=== PATIENT | female | born 1970 | race Caucasian/White ===

== ENCOUNTER 2025-03-15 14:50 | Outpatient (REF) | payer MEDICAID, SELFPAY ==
--- OUTSIDE RECORDS SUMMARY | 2025-03-15 14:56 | XMS_ITS | Encounter Summary ---
Author Organization [facility] Address [address] [place] [address] Care Team Providers Care Stock Patch Sawyer Name Role Phone Charissa Rojas MD Primary Care Provider Reason for Visit * Reason Onset Date Comments Nurse Triage 10/19/2023 Encounter Details Date Type Department Care Team ([facility] st Contact Info) Description 10/19/2023 Telephone [facility] [address] [place] [address] Charissa Rojas MD [address] [place], [place] [id number] Nurse Triage Social History Tobacco Use Types Packs/Day Years Used Date Smoking Tobacco: Never Smokeless Tobacco: Never Housing Stability Answer Date Recorded What is your housing situation today? I have philippe mcguire 09/19/[address] you li ve. Do you have problems with any of the following? None of the above 09/19/2023 Food Insecurity Answer Date Recorded Within the past 12 months, y ou worried that your food would run out before you got money to buy more: Never True 09/19/2023 Within the past 12 months,th e food you bought just didn't last and you didn't have enough money to get more: Never True 04/2023 Transportation Answer Date Recorded In the past 12 months, has l ack of transportation kept you from medical appts, meetings, work or from getting things needed for daily living? No 09/19/2023 Utilities Answer Date Recorded In the past 12 months, has t he electric, gas, oil or water company threatened to shut off services in your home? No 09/19/2023 Comments Unknown Sex and Gender Information Value Date Recorded Sex Assigned at Female 09/13/2022 10:14 AM EDT Legal Sex Female 10:14 AM EDT Gender Identity Female 09/13/2022 10:14 AM EDT Sexual Orientation Straight 09/13/2022 10 :14 AM EDT documented as of this encounter Miscellaneous Notes * Telephone Encounter - Corinne Moono - 10/19/2023 3:34 PM EST Symptom: Knee Pain - Not From Injury Outcome: Schedule an urgent appointment (within 1 hour) or talk to a nurse or provider soon Reason: Severe pain now The caller accepted this outcome Chilean speaker documented in this encounter Plan of Treatment Upcoming Encounters Date Type Department Care Team (Late st Contact Info) Description 06/21/2025 2:30 PM EDT Office Visit [facility] [address] [place] [address] Charissa Rojas MD [address] [place] [address] documented as of this encounter Visit Diagnoses Not on filedocumented in this encounter Care Teams Stock Patch Sawyer Relationship Specialty Start Date End Date Charissa Rojas MD [address] [place] [address] PCP - General Internal Medicine 03/09/12 documented as of this encounter
--- OUTSIDE RECORDS SUMMARY | 2025-03-15 14:56 | XMS_ITS | Continuity of Care Document ---
Author Organization [facility] Address [address] [place] [address] Phone Care Team Providers Care Net Developer Programmer Name Role Phone Unavailable Unavailable Unavailable Medications [...] Provider Providers Copied on Encounter [facility], [address], [place], [place], [id number], [place] tel:[phone] [employer] [place] No Information 2 No Information [facility], [address], [place], [place], [id number], [place] tel:[phone] Converted Locations No Information 2 No Information [facility], [address], [place], [place], [id number], [place] tel:[phone] Converted Locations No Information 1 Z-Converted Provider. . [facility], [address], [place], [place], [id number], [place] tel:[phone] [facility] Generalized anxiety disorderUnspe cified essential hypertension 1 No Information [place] Cary [facility], [address] [facility] [address], [place], [place], [id number], tel:[phone] Converted Locations No Information 1 No Information [place] Cary [facility], [address] [facility] [address], [place], [place], [id number], tel:[phone] Converted Locations No Information 1 Z-Converted Provider. . [facility], [address] [facility] [address], [place], [place], [id number], [place] tel:[phone] [facility] Other general medical examination for administrativ [...] hypertension Payers Payer name Insurance type Covered alliance party ID Authoriza tion(s) No Information Social History Type Description Quantity Date Captured Comments Sex Female Smoking Status No Information Chief Complaint And Reason For Visit No Information Reason For Referral Reason For Referral No Information Plan Of Treatment Date Type Action Status Goal Unhealthy drug use screening . Due on due Goal HPV. Due on due Goal Document SOGI Information. [...]
--- OUTSIDE RECORDS SUMMARY | 2025-03-15 14:56 | XMS_ITS | Clinical Summary ---
Author Organization [employer] Address [address] [place] [address] Care Team Providers Care Cardiac Specialist Name Role Phone Charissa Rojas MD Primary Care Provider Allergies No known active allergies Medications cyclobenzaprine (Flexeril) 5 MG tablet TOME SEMAJ TABLETA TODOS LOS ARAUJO AL ACOSTARSE 30 tablet 3 3 Active atorvastatin (Lipitor) 40 MG tablet Take 1 tablet by mouth. 1 Active chlorthalidone (Hygroton) 25 MG tablet TOME MEDIA TABLETA DIARIAMENTE POR V A ORAL 3 Active Diclofenac Sodium 1 % gel APLIQUE AL MARINA AFECTADA TOPICAMENTE 2 VECES AL MARIELOS. 2 Active cholecalciferol (KP Vitamin D) 25 MCG (1000 UT) capsule Take 1 capsule by mouth. 6 Active loratadine (Claritin) 10 MG tablet Take 1 tablet by mouth at bed time. 9 Active amLODIPine (Norvasc) 10 MG tabletIndication s:Benign hypertension TOME SEMAJ TABLETA TODOS LOS ARAUJO 30 tablet 11 4 Active Diclofenac Sodium 1 % gelIndications:A cute pain of right knee TO APPLY TO THE AFFECTED AREA 3 TIMES A DAY 100 g 4 Active carbamide peroxide (Debrox) 6.5 % otic solutionIndicati ons:Excessive cerumen in right ear canal Administer 5-10 drops into affected ear(s) 2 times daily for 4 days. 30 mL 5 03/19/20 25 Active Active Problems Problem Noted Date Diagnosed Date Anemia of chronic disease 07/06/2021 Hypertensive heart and renal disease with (congestive) heart failure 07/06/2021 Stage 1 chronic kidney disease 07/06/2021 Depressive disorder 05/09/2010 Benign hypertension 05/09/1993 Encounters Date Type Department Care Team Description 03/15/2025 2:00 PM EDT Office Visit [facility] & PEDS [address] [place] [address] Charissa Rojas MD Benign hypertension (Primary Dx); Depressive disorder; Annual physical exam; Screening for colon cancer; Encounter for screening mammogram for malignant neoplasm of breast; Excessive cerumen in right ear canal; Encounter for immunization 03/15/2025 Travel 03/08/2025 Patient Outreach [facility] [address] [place] [address] Charissa Rojas MD Pre-visit Planning (Pre visit planning unable to LVM ) 01/25/2025 Population Health Risk Score [facility] () Department [address] [place] [address] Provider, Population Health Generic from Last 3 Months Immunizations Name Administration Dates Next Due Influenza injectable quadriv alent IIV4 with preservative 08/10/2016,09/11/2015 Influenza, IIV3, injectable 09/07/2018 Influenza, Split (incl. purified surface antigen ) 08/30/2013,09/18/2012 Pneumococcal Conjugate PCV 20 03/15/2025 Tdap 03/15/2025,02/15/2014 Family History Medical History Relation Name Comments Breast cancer Mother Relation Name Status Comments Mother Social History Tobacco Use Types Packs/Day Years Used Date Smoking Tobacco: Never Smokeless Tobacco: Never Tobacco Cessation:Counseling Given: Not Answered Depression Answer Date Recorded Patient Health Questionnaire-9 Score 4 03/15/2025 Patient Health Questionnaire-9 Score 4 03/15/2025 Last PHQ-9: Questionnaire Data Not on file 0 03/15/2025 Housing Stability Answer Date Recorded What is [...] off services in your home? No 09/19/2023 Depression Answer Date Recorded Patient Health Questionnaire-2 Score 3 03/15/2025 Comments Unknown Sex and Gender Information Value Date Recorded Sex Assigned at Female 09/13/2022 10:14 AM EDT Legal Sex Female 10:14 AM EDT Gender Identity Female 09/13/2022 10:14 AM EDT Sexual Orientation Straight 09/13/2022 10 :14 AM EDT Last Filed Vital Signs Vital Sign Reading Time Taken Comments Blood Pressure 161/103 03/15/2025 2:11 PM EDT Pulse 91 03/15/2025 2:11 PM EDT Temperature 36.6 ??C (97.9 ??F) 03/15/2025 2:11 PM ED T Respiratory Rate 20 03/15/2025 2:11 PM EDT Oxygen Saturation 92% 03/15/2025 2:11 PM EDT Inhaled Oxygen Concentration - - Weight 65.3 kg (144 lb) 03/15/2025 2:11 PM EDT Height 157.5 cm (5' 2 ) 03/15/2025 2:11 PM EDT Body Mass Index 26.34 03/15/2025 2:11 PM EDT Plan of Treatment Upcoming Encounters Date Type Department Care Team (Late st Contact Info) Description 06/21/2025 2:30 PM EDT Office Visit [facility] PEDS [address] [place] [address] Charissa Rojas MD [address] [place] [address] Health Maintenance Due Date Last Done Comments CT Colonography 1970 Colonoscopy 1970 Colorectal Cancer Screening 1970 Depression Screening 1970 FIT DNA/Cologuard 1970 FIT 1970 FOBT 1970 HIV Screening 1970 Sigmoidoscopy 1970 Alcohol/Substance Use Screening 1982 Hepatitis C Screening 1988 Hepatitis B Vaccines (1 of 3 - 19+ 3-dose series) 1989 Pap Smear 1991 Mammogram 2010 Zoster Vaccines (1 of 2) 2020 Cervical Cancer Screening 05/31/2022 HPV/Cotest 05/31/2022 05/31/2017 SDOH Screening 03/10/2024 03/10/2023 COVID-19 Vaccine ( season) 2024 01/09/2022, 04/08/2021, 03/18/2021 Influenza Vaccine (#1) 2024 8, 08/10/2016, 09/11/2015, Additional history exists Lipid Panel 02/24/2026 02/24/2021 Tobacco Screening 03/15/2026 03/15/2025 DTaP/Tdap/Td Vaccines (3 - Td or Tdap) 03/15/2035 03/15/2025, 02/15/2014 RSV Patients and Patients Aged 60 years or older (1 - 1-dose 75+ series) 2045 Pneumococcal Vaccine: 50+ Years Completed 03/15/2025 HIB Vaccines Aged Out No longer eligi ble based on patient's age to complete this topic HPV Vaccines Aged Out No longer eligi ble based on patient's age to complete this topic Hepatitis A Vaccines Aged Out No long er eligible based on patient's age to complete this topic IPV Vaccines Aged Out No longer eligi ble based on patient's age to complete this topic Meningococcal Vaccine Aged Out No margarita bala eligible based on patient's age to complete this topic RSV under 20 months Aged Out No longe r eligible based on patient's age to complete this topic Rotavirus Vaccines Aged Out No longer eligible based on patient's age to complete this topic Procedures Procedure Name Priority Date/Time Associated Diagnosis Comments LIPID PANEL, STANDARD Routine 02/24/2021 10:57 AM EDT [facility] HISTORICAL HPV MRNA E6/E7 Routine 05/31/2017 2:40 PM EDT from Last 3 Months or Most Recently Relevant to Health Maintenance Results * (ABNORMAL) LIPID PANEL, STANDARD (02/24/2021 10:57 AM EDT) Chol/HDLC Ratio 6.6(H) <5.0 (calc) [facility] Cholesterol, Total 223(H) <200 mg/dL [facility] HDL Cholesterol 34(L) > OR = 50 mg/dL [facility] LDL Cholesterol 153(H) mg/dL (calc) [facility] Comment: Reference range: <100 ?? Desirable range <100 mg/dL for primary prevention; ?? <70 mg/dL for patients with CHD or diabetic patients ?? with > or = 2 CHD risk factors. ?? LDL-C is now calculated using the Sanket ?? calculation, which is a validated novel method providing ?? better accuracy than the Friedewald equation in the ?? estimation of LDL-C. ?? Dheeraj YEAGER et al. GARO. 2013;310(19): 3731-0592 ?? (http://education.Emergent Discovery.Strava/faq/GZL143) Non-HDL Cholesterol 189(H) <130 mg/dL (calc) [facility] Comment: For patients with diabetes plus 1 major ASCVD risk ?? factor, treating to a non-HDL-C goal of <100 mg/dL ?? (LDL-C of <70 mg/dL) is considered a therapeutic ?? option. Triglycerides 225(H) <150 mg/dL [facility] Comment: ?? If a non-fasting specimen was collected, consider repeat triglyceride testing on a fasting specimen if clinically indicated. ?? Shira et al. J. of Clin. Lipidol. 2015;9:129-169. ?? 02/24/2021 10:5 7 AM EDT us Charissa Rojas MD LAB BLOOD ORDERABLES Final Result [facility] [address] * HPV mRNA E6/E7 (05/31/2017 2:40 PM EDT) HPV mRNA E6/E7 Not Detected NOT DETECTED [facility] Comment: This test was performed using the APTIMA(R) HPV Assay ([employer] This assay detects E6/E7 viral messenger RNA (mRNA) from 14 high-risk HPV types (16,18,31,33,35,39,45,51, 52,56,58,59,66,68). For additional information please refer to: http://education.Good People/faq/YJN816f8 (This link is being provided for informational/ educational purposes only.) Test Performed by [facility], [address] [place] [address] Adrián Fam M.D., Ph.D., Director of Laboratories , [place] [id number] Please note: ??Effective 07/26/2016, HPV testing will be performed using [employer]'s APTIMA test which targets mRNA. Detecting mRNA instead of DNA, as in older methods, offers significant improvements in specificity. 05/31/2017 2:40 PM EDT Lauryn Pan CNM HISTORICAL/NON ORDERABLE LABS Final Result [facility] [address] from Last 3 Months or Most Recently Relevant to Health Maintenance Insurance [facility] C3 Care Teams Cardiac Specialist Relationship Specialty Start Date End Date Charissa Rojas MD [address] [place] [address] PCP - General Internal Medicine 03/09/12
--- OUTSIDE RECORDS SUMMARY | 2025-03-15 14:56 | XMS_ITS | Encounter Summary ---
Author Organization [employer] Address [address] [facility] [address] [place] [address] Care Team Providers Care Menu Planner Name Role Phone Charissa Rojas MD Primary Care Provider [phone] Encounter Details Date Type Department Care Team (Latest Contact Info) Description 03/15/2025 Travel Social History Tobacco Use Types Packs/Day Years Used Date Smoking Tobacco: Never Smokeless Tobacco: Never Depression Answer Date Recorded Patient Health Questionnaire-9 [...] AM EDT documented as of this encounter Plan of Treatment Upcoming Encounters Date Type Department Care Team (Late st Contact Info) Description 06/21/2025 2:30 PM EDT Office Visit [facility] [address] [place] [address] Charissa Rojas MD [address] [place] [address] documented as of this encounter Visit Diagnoses Not on filedocumented in this encounter Additional Health Concerns Assessment Noted Time PHQ-9 Depression Total Score: 4 03/15/20 25 2:36 PM EDT documented as of this encounter Care Teams Menu Planner Relationship Specialty Start Date End Date Charissa Rojas MD [address] [place] [address] PCP - General Internal Medicine 03/09/12 documented as of this encounter
--- OUTSIDE RECORDS SUMMARY | 2025-03-15 14:56 | XMS_ITS | Encounter Summary ---
Author Organization [facility] Address [address] [place] [address] Care Team Providers Care Grain Combine Driver Name Role Phone Charissa Rojas MD Primary Care Provider Reason for Referral * Imaging (Routine) - Pending Review Specialty Diagnoses / Procedures Referred By Froylan calhoun Referred To Contact Radiology Diagnoses Encounter for screening mammogram for malignant neoplasm of breast Procedures BI Mammogram Screening Tomosynthesis Bilateral Charissa Rojas MD [address] [place] [address] Phone: tel: fax: Referral ID Status Reason Start Date Expiration Date V isits Requested Visits Authorized [id number] Pending Review 03/15/2025 03/15/2026 1 1 Reason for Visit * Reason Comments Annual Exam Encounter Details Date Type Department Care Team ([facility] st Contact Info) Description 03/15/2025 2:00 PM EDT Office Visit [facility] [address] [place] [address] Charissa Rojas MD [address] [place] [address] Benign hypertension (Primary Dx); Depressive disorder; Annual physical exam; Screening for colon cancer; Encounter for screening mammogram for malignant neoplasm of breast; Excessive cerumen in right ear canal; Encounter for immunization Social History Tobacco Use Types Packs/Day Years [...] AM EDT documented as of this encounter Last Filed Vital Signs Vital Sign Reading [...] Mass Index 26.34 03/15/2025 2:11 PM EDT documented in this encounter Progress Notes * Charissa Rojas MD - 03/15/2025 2:00 PM EDT SUBJECTIVE Olena Pascual is a 55 y.o. female who presents for Annual Exam. HPI Fam h/o breast cancer Overall feels well Takes her BP medication irregularly Needs her mammogram and her Hha exam Patient Active Problem List Diagnosis Anemia of chronic disease Benign hypertension Depressive disorder Hypertensive heart and renal disease with (congestive) heart failure (CMS/HCC) Stage 1 chronic kidney disease No Known Allergies Current Outpatient Medications on File Prior to Visit Medication Sig Dispense Refill amLODIPine (Norvasc) 10 MG tablet TOME SEMAJ TABLETA TODOS LOS ARAUJO 30 tablet 11 atorvastatin (Lipitor) 40 MG tablet Take 1 tablet by mouth. chlorthalidone (Hygroton) 25 MG tablet TOME MEDIA TABLETA DIARIAMENTE POR V A ORAL cholecalciferol ( Vitamin D) 25 MCG (1000 UT) capsule Take 1 capsule by mouth. cyclobenzaprine (Flexeril) 5 MG tablet TOME SEMAJ TABLETA TODOS LOS ARAUJO AL ACOSTARSE 30 tablet 3 Diclofenac Sodium 1 % gel APLIQUE AL MARINA AFECTADA TOPICAMENTE 2 VECES AL MARIELOS. Diclofenac Sodium 1 % gel TO APPLY TO THE AFFECTED AREA 3 TIMES A DAY 100 g 0 loratadine (Claritin) 10 MG tablet Take 1 tablet by mouth at bed time. No current facility-administered medications on file prior to visit. Review of Systems Constitutional: Negative for activity change, appetite change, chills and diaphoresis. HENT: Negative for dental problem, drooling, ear discharge, ear pain and hearing loss. Eyes: Negative for pain, discharge and itching. Respiratory: Negative for cough, choking and chest tightness. Cardiovascular: Negative for chest pain and leg swelling. Gastrointestinal: Negative for blood in stool and diarrhea. Genitourinary: Negative for difficulty urinating, dyspareunia, dysuria, enuresis, flank pain, frequency and genital sores. Musculoskeletal: Negative for arthralgias, gait problem and joint swelling. Skin: Negative for pallor. Neurological: Negative for dizziness, seizures, speech difficulty, light- headedness and numbness. Psychiatric/Behavioral: Negative for behavioral problems, confusion and decreased concentration. OBJECTIVE Vitals: 03/15/25 1411 BP: (!) 161/103 BP Location: Left arm Patient Position: Sitting BP Cuff Size: Adult Pulse: 91 Resp: 20 Temp: 97.9 ??F (36.6 ??C) TempSrc: Oral SpO2: 92% Weight: 144 lb (65.3 kg) Height: 5' 2 (1.575 m) Physical Exam Constitutional: General: She is not in acute distress. Appearance: Normal appearance. She is not ill-appearing, toxic-appearing or diaphoretic. HENT: Head: Normocephalic. Right Ear: Tympanic membrane normal. There is no impacted cerumen. Left Ear: Tympanic membrane normal. There is no impacted cerumen. Nose: Nose normal. No congestion or rhinorrhea. Mouth/Throat: Mouth: Mucous membranes are moist. Eyes: General: No scleral icterus. Right eye: No discharge. Left eye: No discharge. Pupils: Pupils are equal, round, and reactive to light. Cardiovascular: Rate and Rhythm: Normal rate and regular rhythm. Heart sounds: No murmur heard. No friction rub. No gallop. Pulmonary: Effort: Pulmonary effort is normal. No respiratory distress. Breath sounds: No stridor. No wheezing, rhonchi or rales. Chest: Chest wall: No tenderness. Abdominal: General: There is no distension. Palpations: Abdomen is soft. There is no mass. Tenderness: There is no abdominal tenderness. There is no right CVA tenderness or left CVA tenderness. Musculoskeletal: General: Normal range of motion. Cervical back: Normal range of motion. Neurological: General: No focal deficit present. Mental Status: She is alert and oriented to person, place, and time. Psychiatric: Mood and Affect: Mood normal. Assessment/Plan Assessment/Plan Diagnoses and all orders for this visit: Benign hypertension Comments: BP is elevated Pt did not take her meds today because she woke up late Compliance to medication reinforced. Depressive disorder Comments: Stable Patient declines needing help Annual physical exam Comments: Normal exam Patient is to maintain a healthy and balanced diet Needs eye exam, gynecological exam, Cologuard, mammogram Orders: - CBC auto differential; Future - Comprehensive Metabolic Panel; Future - Hepatitis C Viral RNA, Quantitative, Real-Time PCR; Future - HIV-1/2 Antigen and Antibodies, Fourth Generation, with Reflexes; Future - Lipid Panel, Standard; Future - TSH W/Reflex to FT4; Future Screening for colon cancer - Cologuard?? colon cancer screening; Future Encounter for screening mammogram for malignant neoplasm of breast - BI Mammogram Screening Tomosynthesis Bilateral; Future Excessive cerumen in right ear canal - carbamide peroxide (Debrox) 6.5 % otic solution; Administer 5-10 drops into affected ear(s) 2 times daily for 4 days. documented in this encounter Miscellaneous Notes * Addendum Note - Carla Crawford [place] - 03/15/2025 2:00 PM EDTAddended by: CARLA CRAWFORD on: 03/15/2025 02:41 PM Modules accepted: Orders documented in this encounter Plan of Treatment Upcoming Encounters Date Type Department Care Team (Late st Contact Info) Description 06/21/2025 2:30 PM EDT Office Visit [facility] [address] [place] [address] Charissa Rojas MD [address] [place] [address] Scheduled Orders Name Type Priority Associated Diagnoses Orde r Schedule Cologuard?? colon cancer screening Lab Routine Screening for colon cancer Expected: 03/15/2025 (Approximate), Expires: 03/15/2026 BI Mammogram Screening Tomosynthesis Bilateral Imaging Routine Encounter for screening mammogram for malignant neoplasm of breast Expected: 03/15/2025, Expires: 05/15/2026 CBC auto differential Lab Routine Annual physical exam Expected: 03/15/2025 (Approximate), Expires: 03/15/2026 Comprehensive Metabolic Panel Lab Routine Annual physical exam Expected: 03/15/2025 (Approximate), Expires: 03/15/2026 Hepatitis C Viral RNA, Quantitative, Real-Time PCR Lab Routine Annual physical exam Expected: 03/15/2025 (Approximate), Expires: 03/15/2026 HIV-1/2 Antigen and Antibodies, Fourth Generation, with Reflexes Lab Routine Annual physical exam Expected: 03/15/2025 (Approximate), Expires: 03/15/2026 Lipid Panel, Standard Lab Routine Annual physical exam Expected: 03/15/2025 (Approximate), Expires: 03/15/2026 TSH W/Reflex to FT4 Lab Routine Annual physical exam Expected: 03/15/2025 (Approximate), Expires: 03/15/2026 documented as of this encounter Visit Diagnoses Diagnosis Benign hypertension- Primary Essential hypertension, benign Depressive disorder Depressive disorder, not elsewhere classified Annual physical exam Routine general medical examination at a health care facility Screening for colon cancer Special screening for malignant neoplasms, colon Encounter for screening mammogram for malignant neoplasm of breast Excessive cerumen in right ear canal Encounter for immunization documented in this encounter Additional Health Concerns Assessment Noted Time PHQ-9 Depression Total Score: 4 03/15/20 25 2:36 PM EDT documented as of this encounter Care Teams Grain Combine Driver Relationship Specialty Start Date End Date Charissa Rojas MD [address] [place] [id number] PCP - General Internal Medicine 03/09/12 documented as of this encounter
[2025-03-15 17:46] LABS: MANUAL DIFF FLAG NO
[2025-03-15 17:56] LABS: Basophils Absolute Auto 0.1 X10*3/uL (0.0-0.2); Basophils Percent Auto 0.8 % (0-2); Eosinophils Absolute Auto 0.1 X10*3/uL (0.0-0.4); Eosinophils Percent Auto 0.6 % (0-4); Hematocrit 39.5 % (37.0-47.0); Hemoglobin 12.8 g/dl (12.0-16.0); Imm Gran Abs Auto 0.03 X10*3/uL (0.00-0.03); Imm Gran Pct Auto 0.3 % (0.0-0.4); Lymphocytes Absolute Auto 2.9 X10*3/uL (1.2-4.9); Lymphocytes Percent Auto 33.3 % (20-40); Mean Corpuscular HGB Conc 32.4 g/dl (31.0-35.0); Mean Corpuscular Volume 89.6 fL (80.0-98.0); Mean Platelet Volume 9.4 fL (9.4-12.3); Monocytes Absolute Auto 0.5 X10*3/uL (0.1-1.2); Monocytes Percent Auto 5.9 % (2-11); Neutrophils Absolute Auto 5.1 x10*3/uL (2.0-8.3); Neutrophils Percent Auto 59.1 % (45-73); Platelet Count 431 X10*3/uL (160-400); Red Blood Count 4.41 X10*6/uL (4.20-5.50); Red Cell Distribution Width 13.8 % (11.0-16.0); White Blood Count 8.7 X10*3/uL (4.8-10.8)
[2025-03-15 18:18] LABS: Albumin Level 4.5 g/dL (3.5-5.0); Alkaline Phosphatase 69 U/L (39-117); Anion Gap 12 (12-20); Aspartate Amino Transferase 32 U/L (5-31); Bilirubin Total 0.3 mg/dL (0.0-1.0); Blood Urea Nitrogen 11 mg/dL (9-16); Calcium 9.5 mg/dL (8.4-10.2); Carbon Dioxide 25 mmol/L (22-29); Chloride 107 mmol/L (96-108); Cholesterol 292 mg/dL (<200); Estimated Glomerular Filt Rate > 60; Glucose Random 90 mg/dL (60-115); HDL Cholesterol 36 mg/dL (>40); LDL Cholesterol Calculated 199 mg/dL (<100); Potassium 3.7 mmol/L (3.3-5.1); Sodium 140 mmol/L (135-145); Total Protein 8.3 g/dL (6.5-8.0); Triglycerides 289 mg/dL (<150)
[2025-03-15 18:22] LABS: Alanine Aminotransferase 28 U/L (0-31)
[2025-03-15 18:55] LABS: TSH reflex Free T4 0.96 uIU/mL (0.32-4.0)
[2025-03-16 11:18] LABS: HCV Log PCR <1.18 NOT DETECTED Log IU/mL (NOT DETECTED); HepC Viral Load <15 NOT DETECTED IU/mL (NOT DETECTED)
[2025-03-18 04:54] LABS: HIV AB/AG Nonreactive (Nonreactive); HIV Num 1 0.11 S/CO (0.00-0.99)
== END 2025-03-15 14:51 | disposition home or self-care (01) ==
LOC: HO.CHCLDS 14:50
PROVIDERS: Visit Provider Internal Medicine
DX: Z00.00 Encounter for general adult medical examination without abnormal findings (principal)
CPT/HCPCS: 36415; 80053; 80061; 84443; 85025; 87389; 87522

== ENCOUNTER 2025-04-09 14:49 | Outpatient (REF) | payer MEDICAID, SELFPAY ==
--- OUTSIDE RECORDS SUMMARY | 2025-04-09 14:52 | XMS_ITS | Continuity of Care Document ---
Author Organization [facility] Address [address] [place] [address] Phone Care Team Providers Care Wrapper Stripper Name Role Phone Unavailable Unavailable Unavailable Medications [...] Providers Copied on Encounter [facility], [address], [place], [place], [id number], [place] tel:[phone] [employer] [facility] No Information 2 No Information [facility], [address], [place], [place], [id number], [place] tel:[phone] Converted Locations No Information 2 No Information [facility], [address], [place], [place], [id number], [place] tel:[phone] Converted Locations No Information 1 Z-Converted Provider. . [facility], [address], [place], [place], [id number], [place] tel:[phone] [facility] Generalized anxiety disorderUnspe cified essential hypertension 1 No Information [place] [facility], [address], [place], [place], [id number], tel:[phone] Converted Locations No Information 1 No Information [place] [facility], [address], [place], [place], [id number], tel:[phone] Converted Locations No Information 1 Z-Converted Provider. . [facility], [address], [place], [place], [id number], [place] tel:[phone] [facility] Other general medical examination for administrativ [...] hypertension Payers Payer name Insurance type Covered constitution party ID Authoriza tion(s) No Information Social [...]
== END 2025-04-09 14:50 | disposition home or self-care (01) ==
LOC: HO.CHCLNP 14:49
PROVIDERS: Visit Provider Family Medicine
DX: Z12.4 Encounter for screening for malignant neoplasm of cervix (principal)
CPT/HCPCS: 87626; 88175

== ENCOUNTER 2025-08-02 11:24 | Outpatient (REF) | payer MEDICAID, SELFPAY ==
--- OUTSIDE RECORDS SUMMARY | 2012-06-15 10:07 | XMS_ITS | Continuity of Care Document ---
Author Organization [facility] Address [address] [place] [address] Phone Care Team Providers Care Rubber Tile Floor Layer Name Role Phone Unavailable Unavailable Unavailable Medications Medication Instructions Dosage Effective Dates (start - stop) Status Comments Natural Oyster Shell Calcium 500 mg calcium (1,250 mg) Tab Take 2 tablets by mouth daily. - Active ferrous sulfate 325 mg (65 mg iron) Tab Take 1 tablet by mouth three times daily. - Active Vitamin D 50,000 unit Cap Take 1 tablet by mouth once weekly for 8 weeks. - Active buspirone 10 mg Tab Take 2 tablets by mouth daily. - Active Kristina 0.35 mg Tab Take 1 tablet by wisam th daily. - Active labetalol 200 mg Tab Take 1 tablet by mo uth daily - Active zolpidem 10 mg Tab 1 tablet at bedtime. 1 - Active Advance Directives Directive Yes / No Effective Date File Name No Information Encounters Encounter Description Practice Location Reason(s) For Visit Diagnoses Date Provider Providers Copied on Encounter [facility], [address], [place], [place], [id number], [place] tel:[phone] [employer] No Information 2 No Information [facility], [address], [place], [place], [id number], [place] tel:[phone] Converted Locations No Information 2 No Information [facility], [address], [place], [place], [id number], [place] tel:[phone] Converted Locations No Information 1 Z-Converted Provider. . [facility], [address], [place], [place], [id number], [place] tel:[phone] [facility] Generalized anxiety disorderUnspe cified essential hypertension 1 No Information [place] [facility], [address], [place], [place], [id number], tel:[phone] Converted Locations No Information 1 No Information [place] [facility], [address] [facility] [address], [place], [place], [id number], tel:[phone] Converted Locations No Information 1 Z-Converted Provider. . [facility], [address], [place], [place], [id number], [place] tel:[phone] [facility] Other general medical examination for administrativ e purposes 1 Z-Converted Provider. . Family History Family Member Type Diagnosis Age At Onset FH - FATHER (DDMS) Problem (finding) heart disease FH - MOTHER (DDMS) Problem (finding) hypercholesterole rosario FH - MOTHER (DDMS) Problem (finding) arthritis FH - FATHER (DDMS) Problem (finding) Myocardial infarc tion FH - MOTHER (DDMS) Problem (finding) hypertension Payers Payer name Insurance type Covered green party ID Authoriza tion(s) No Information Social History Type Description Quantity Date Captured Comments Sex Female Smoking Status No Information Chief Complaint And Reason For Visit No Information Reason For Referral Reason For Referral No Information Plan Of Treatment Date Type Action Status Goal HPV. Due on due Goal Unhealthy drug use screening . Due on due Goal Document SOGI Information. D ue on due Goal Lipid panel. Due on 012 due Goal Td vaccine. Due on 12 due Goal PAP. Due on due Goal APE. Due on due Goal Influenza vaccine. Due on due Goal Pap/HPV testing. Due on due Goal Tdap. Due on due History Of Present Illness Encounter Date Complaint History Of Prese nt Illness No Information Functional Status Date Functional Assessmen t No Information Instructions Date Instruction Additional Infor mation No Information Assessments Type Assessment Date No Information Patient Care Teams Name Effective Dates (start - stop) Status Members No Information
--- OUTSIDE RECORDS SUMMARY | 2025-07-29 06:15 | XMS_ITS | Encounter Summary ---
Author Organization [facility] Address [address] [place] [address] Care Team Providers Care Clinical Therapist Name Role Phone Physician, Pcp Unknown Primary Care Provider Kelsey vailable Reason for Visit * Reason Comments Chest Pain Encounter Details Date Type Department Care Team (Late st Contact Info) Description 07/29/2025 6:15 AM EDT - 07/29/2025 9:[address] [facility] [address] [place] [address] Hypokalemia (Primary Dx); Intercostal pain; Syncope and collapse Discharge Disposition: Home or Self Care Social History Tobacco Use Types Packs/Day Years Used Date Smoking Tobacco: Never Assessed Comments Unknown Sex and Gender Information Value Date Recorded Sex Assigned at Not on file Legal Sex Female 11:25 AM EST Gender Identity Not on file Sexual Orientation Not on file documented as of this encounter Last Filed Vital Signs Vital Sign Reading Time Taken Comments Blood Pressure 130/90 07/29/2025 9:56 AM EDT Pulse 80 07/29/2025 9:56 AM EDT Temperature 37.1 C (98.7 F) 07/29/2025 7:32 AM EDT Respiratory Rate 16 07/29/2025 9:56 AM EDT Oxygen Saturation 99% 07/29/2025 9:56 AM EDT Inhaled Oxygen Concentration - - Weight 68 kg (150 lb) 07/29/2025 5:31 AM EDT Height 157.5 cm (5' 2 ) 07/29/2025 5:31 AM EDT Body Mass Index 27.44 07/29/2025 5:31 AM EDT documented in this encounter Discharge Instructions * Discharge Instructions* CHLOE Miranda - 07/29/2025 9:38 AM EDT Today your potassium is low but we gave you potassium to replete it. All of your other blood work looked okay including the EKG of your heart and the chest x-ray. Take the prescribed naproxen with food for the next 2 weeks, morning and night. Let your PCP know whether or not this is helping with the pain. For any new or worsening symptoms including worsening chest pain return here to the ER for reevaluation documented in this encounter Medications at Time of Discharge amLODIPine (NORVASC) 10 mg tablet Take 1 tablet (10 mg total) by mouth 1 (one) time each day. 04/09/2025 chlorthalidone (HYGROTON) 25 mg tablet Take 1 tablet (25 mg total) by mouth daily. 03/02/2023 naproxen (NAPROSYN) 500 mg tablet Take 1 tablet (500 mg total) by mouth 2 (two) times a day with meals. 60 each 07/29/2025 08/28/2025 QUEtiapine (SEROquel) 50 mg tablet Take 1 tablet (50 mg total) by mouth at bedtime. documented as of this encounter Ordered Prescriptions Prescription Sig Dispense Quantity Refills Last Filled Start Date End Date naproxen (NAPROSYN) 500 mg tablet Take 1 tablet (500 mg total) by mouth 2 (two) times a day with meals. 60 each 07/29/2025 08/28/2025 documented in this encounter Discharge Disposition Disposition Code Departure Means Destination Comment s Home or Self Care documented in this encounter Progress Notes * Maggy Burris RN - 07/29/2025 6:10 AM EDT . ED POST FALL NURSING NOTE Time of Fall: 601 Description of fall: patient stood up out of phlebotomy chair after blood specimens were obtained. Pt fell forward into prone position onto floor when Laurie CORONA caught patient, preventingpt from hitting her head on floor. Pt was rolled onto her back and central pulses assessed and present. Pt responsive to verbal stimuli with a smile. Pt lifted onto stretcher and VS assessed and documented. boss dyer aware, code star called overhead. Patient transferred to red pod for further eval and mgmt. Was the fall Assisted: [x] YES [] NO Was the fall Witnessed: [x] YES [] NO Was the Patient a high risk based on [place] Fall assessment? [] YES [] NO What interventions were NOT being used at time of fall? Yellow Socks [x] Fall Risk Band [x] Fall Risk Flag [x] Alarm [x] Injuries?- unable to voice complaints at this time Actions taken to prevent further falls: staff continuing care made aware of pt's fall so that fall precautions can be initiated Provider notified: [x] YES [] NO Family Notified: [] YES [x] NO * Marti Stack RN - 07/29/2025 5:30 AM EDT PT ARRIVES STEADY GAIT, COMPLAINS OF CHEST PAIN X 2 DAYS, NO CALL TO DR, DENIES N/V/D, DENIES ORBM SYMPTOMS, DENIES ANY OTHER COMPLAINTS NON SMOKER * CHLOE Miranda - 07/29/2025 5:24 AM EDT Emergency Medicine Note Patient Name: Olena Pascual Initial Evaluation: 07/29/2025 : 1970 Patient's PCP: Pcp Unknown Physician Emergency Physician: CHLOE Beckwith History of Present Illness Chief Complaint: Chief Complaint Patient presents with Chest Pain HPI: 65-year-old female presents today with complaints of 2 days of chest discomfort. Patient describes it as left-sided chest pain, stabbing in nature. Denies pain worse with exertion, denies that it is pleuritic. Patient does admit to recent runny nose and a nonproductive cough. Patient states historyof similar which has resolved on its own. Patient denies any recent travel or surgery, lower extremi ty swelling or edema. Patient states that she did take an aspirin at the onset of the pain, does not usually take a daily aspirin. ROS: I have performed a ROS with the pertinent positives and negatives documented in the history ofpresent illness. Previous History History reviewed. No pertinent past medical history. History reviewed. No pertinent surgical history. No family history on file. has No Known Allergies. No current facility-administered medications on file prior to encounter. Current Outpatient Medications on File Prior to Encounter Medication Sig Dispense Refill amLODIPine (NORVASC) 10 mg tablet Take 1 tablet (10 mg total) by mouth 1 (one) time each day. chlorthalidone (HYGROTON) 25 mg tablet Take 1 tablet (25 mg total) by mouth daily. QUEtiapine (SEROquel) 50 mg tablet Take 1 tablet (50 mg total) by mouth at bedtime. Physical Exam ED Triage Vitals [07/29/25 0531] Temp Heart Rate Resp BP 37.1 ??C (98.7 ??F) 87 18 (!) 154/92 SpO2 Temp Source Heart Rate Source Patient Position 98 % Temporal Other (Comment) Sitting BP Location FiO2 (%) -- -- General: awake, calm, cooperative, No apparent distress Skin: warm, dry Eyes: PERRLA, EOMI ENT: mucosa moist Neck: soft/supple, full range of motion Respiratory: clear to auscultation Cardiovascular: regular rate and rhythm Gastrointestinal: soft nontender, normal active bowel sounds, no hepatomegaly Musculoskeletal: No peripheral edema, left anterior chest wall reproducible pain with palpation Neurological: alert with no acute lateralizing deficit Psychiatric: stable mood and affect Results Labs Reviewed COMPREHENSIVE METABOLIC PANEL - Abnormal Result Value Sodium 134 Potassium 3.0 (*) Chloride 96 CO2 28 Anion Gap 10 Glucose 97 BUN 12 Creatinine 0.57 eGFR 107 BUN/Creatinine Ratio 21.1 Calcium 9.8 AST (SGOT) 23 ALT (SGPT) 26 Alkaline Phosphatase 82 Total Protein 8.6 (*) Albumin 4.4 Total Bilirubin 0.3 CBC WITH AUTO DIFFERENTIAL - Abnormal WBC 11.6 (*) RBC 4.40 Hemoglobin 12.5 Hematocrit 37.6 MCV 85.8 MCH 28.5 MCHC 33.2 RDW 12.8 Platelets 442 (*) MPV 9.0 NRBC 0.0 NRBC Absolute 0.00 Neutrophils Relative 71.1 Lymphocytes Relative 22.9 Monocytes Relative 4.6 Eosinophils Relative 0.3 Basophils Relative 0.5 Immature Granulocytes Relative 0.6 Neutrophils Absolute 8.26 (*) Lymphocytes Absolute 2.67 Monocytes Absolute 0.54 Eosinophils Absolute 0.04 Basophils Absolute 0.06 Immature Granulocytes Absolute 0.07 (*) TROPONIN I HIGH SENSITIVITY - Normal High Sensitivity Troponin I 4 Narrative: High levels of biotin in samples may falsely decrease hsTroponin values. Use caution when interpreting hsTroponin results in patients taking biotin who exhibit renal impairment (eGFR <60) or in patients taking more than 20 mg/day of biotin. TROPONIN I HIGH SENSITIVITY - Normal High Sensitivity Troponin I 4 Narrative: High levels of biotin in samples may falsely decrease hsTroponin values. Use caution when interpreting hsTroponin results in patients taking biotin who exhibit renal impairment (eGFR <60) or in patients taking more than 20 mg/day of biotin. LIPASE - Normal Lipase 63 MAGNESIUM - Normal Magnesium 2.2 B-TYPE NATRIURETIC PEPTIDE - Normal BNP 3 ETHANOL - Normal Ethanol Level 9 CBC AND DIFFERENTIAL Narrative: The following orders were created for panel order CBC and differential. Procedure Abnormality Status --------- ------ CBC auto differential[[id number]] Abnormal Final result Please view results for these tests on the individual orders. POCT GLUCOSE, BLOOD Abnormal Labs Reviewed COMPREHENSIVE METABOLIC PANEL - Abnormal; Notable for the following components: Result Value Potassium 3.0 (*) Total Protein 8.6 (*) All other components within normal limits CBC WITH AUTO DIFFERENTIAL - Abnormal; Notable for the following components: WBC 11.6 (*) Platelets 442 (*) Neutrophils Absolute 8.26 (*) Immature Granulocytes Absolute 0.07 (*) All other components within normal limits XR Chest 2 Views Final Result FINDINGS/IMPRESSION: Lungs are clear. No pleural effusion or pneumothorax. Cardiac silhouette and bones are normal. Cholecystectomy clips.. -------- FINAL REPORT -------- Dictated By: PB ROJAS Dictated Date: 07/29/2025 08:48 ET Assigned Physician: PB ROJAS Reviewed and Electronically Signed By: PB ROJAS Signed Date: 07/29/2025 09:03 ET Workstation ID: [id number] Transcribed By: Self Edit Transcribed Date: 07/29/2025 08:48 ET I have discussed the incidental/abnormal imaging and/or lab abnormalities with the patient and haveinstructed them the need for further evaluation and workup with their primary care doctor. I have provided the patient with a paper copy of the abnormality. The laboratory results, imaging results and other diagnostic exam results were reviewed in the EMR. Medical Decision Making ACS, costochondritis, PE, Pneumonia, viral URI, vasovagal syncope, orthostatic hypotension 55-year-old female presents today with complaints of chest pain. I spoke with her in the phlebotomychair while getting blood work, patient was alert and conversant, stood up to go back to the waiting room when I asked her to follow me to go down to chest x-ray, she turned around and fell forward, I was able to catch her so her face did not hit the floor. Patient was moved into stretcher, repeat vitals obtained, blood pressure 82/61, IV line placed, fluids started, will reevaluate. Likely vasovagal after having blood work, will continue to monitor. Prior to me talking with patient in the phlebotomy chair I reviewed her EKG which showed a normal sinus rhythm rate of 77 with no acute ischemic changes. After her syncopal episode a ordered a repeatEKG which showed no acute ischemic changes or evidence of arrhythmia Patient's blood pressure immediately improved upon transfer to the room, even prior to IV fluids. Patient blood work showed a potassium of 3.0, was given KCL PO. Patient's troponins are flat x 2, ruling out NSTEMI. My concern for PE is low and patient has a Wells score of 0, no indication for CTA. Patient has a mildly elevated white blood cell count, she could be starting with a virus as she does have some associated nasal congestion and a cough, regardless this will not change booth attendant (swab not sent). chest x-ray normal. Patient was advised to follow-up further with her PCP and to take the prescribed naproxen twice daily with food for the next 2 weeks as her pain could be costochondritis/musculoskeletal related as it is reproducible. Of note patient did vaguely smell of alcohol when I was talking with her initially (etoh level was added on). She does state that she was at a [employer] 2 days ago, does not normally drink, and has not been resting well since, requesting note for work. Medications sodium chloride 0.9 % bolus 1,000 mL (0 mL intravenous Stopped 07/29/25 09) potassium chloride (KLOR-CON M20) CR tablet 40 mEq (40 mEq oral Given 07/29/25 0733) Followed by potassium chloride (KLOR-CON M20) CR tablet 20 mEq (20 mEq oral Given 07/29/25 0954) Clinical Impressions as of 07/29/25956 Hypokalemia Intercostal pain Syncope and collapse Procedures Procedures Diagnosis 1. Hypokalemia 2. Intercostal pain 3. Syncope and collapse Disposition Discharge ED Prescriptions Medication Sig Dispense Start Date End Date Auth. Provider naproxen (NAPROSYN) 500 mg tablet Take 1 tablet (500 mg total) by mouth 2 (two) times a day with meals. 60 each 07/29/2025 08/28/2025 CHLOE Miranda Physician Attestation CHLOE Miranda 07/29/25 0701 CHLOE Miranda 07/29/25 0957 Cosigned by Joel Mao MD at 07/29/2025 6:30 PM EDT documented in this encounter Plan of Treatment Not on file documented as of this encounter Procedures Procedure Name Priority Date/Time Associated Diagnosis Comments ECG ANNOTATED 07/30/2025 XR CHEST 2 VIEWS STAT 07/29/2025 8:45 AM EDT TROPONIN I HIGH SENSITIVITY Timed 07/29/2025 7:20 AM EDT ECG 12-LEAD STAT 07/29/2025 6:25 AM EDT TROPONIN I HIGH SENSITIVITY Timed 07/29/2025 6:01 AM EDT CBC WITH AUTO DIFFERENTIAL STAT 07/29/2025 6:01 AM EDT CBC AND DIFFERENTIAL STAT 07/29/2025 6:01 AM EDT B-TYPE NATRIURETIC PEPTIDE STAT 07/29/2025 6:01 AM EDT MAGNESIUM STAT 07/29/2025 6:01 AM EDT LIPASE STAT 07/29/2025 6:01 AM EDT ETHANOL Add-On 07/29/2025 6:01 AM EDT COMPREHENSIVE METABOLIC PANEL STAT 07/29/2025 6:01 AM EDT ECG 12-LEAD STAT 07/29/2025 5:32 AM EDT ECG ANNOTATED 07/29/2025 documented in this encounter Results * ECG-Annotated (07/30/2025) us Provider Onbase ECG ORDERABLES Final Result * XR Chest 2 Views (07/29/2025 8:45 AM EDT) Anatomical Region Laterality Modality Body Radiographic Yakelin ging 07/29/2025 8:48 AM EDT Impressions 07/29/2025 9:03 AM EDT FINDINGS/IMPRESSION: Lungs are clear. No pleural effusion or pneumothorax. Cardiac silhouette and bones are normal. Cholecystectomy clips.. -------- FINAL REPORT -------- Dictated By: BP ROJAS Dictated Date: 07/29/2025 08:48 ET Assigned Physician: PB ROJAS Reviewed and Electronically Signed By: PB ROJAS Signed Date: 07/29/2025 09:03 ET Workstation ID: [id number] Transcribed By: Self Edit Transcribed Date: 07/29/2025 08:48 ET Narrative 07/29/2025 9:03 AM EDT XR CHEST 2 VIEWS INDICATION: 12/28/2021 TECHNIQUE: XR CHEST 2 VIEWS COMPARISON: Chest pain. Procedure Note Pb Rojas MD - 07/29/2025 XR CHEST 2 VIEWS INDICATION: 12/28/2021 TECHNIQUE: XR CHEST 2 VIEWS COMPARISON: Chest pain. IMPRESSION: FINDINGS/IMPRESSION: Lungs are clear. No pleural effusion orpneumothorax. Cardiac silhouette and bones are normal. Cholecystectomyclips.. -------- FINAL REPORT -------- Dictated By: BP ROJAS Dictated Date: 07/29/2025 08:48 ET Assigned Physician: PB ROJAS Reviewed and Electronically Signed By: PB ROJAS Signed Date: 07/29/2025 09:03 ET Workstation ID: [id number] Transcribed By: Self Edit Transcribed Date: 07/29/2025 08:48 ET Jorge L Ngo MD IMG XR PROCEDURES Final Res ult * Troponin I high sensitivity (07/29/2025 7:20 AM EDT) [facility] High Sensitivity Troponin I 4 <=54 ng/L LAB CHEMISTRY METHOD 07/29/2025 8:[address] [facility] Blood Venous blood specimen / Unknown Venipuncture / Unknown 07/29/2025 7:20 AM EDT 07/29/2025 7:[address] [facility] - 07/29/2025 8:25 AM EDT High levels of biotin in samples may falsely decrease hsTroponin values. Use caution when interpreting hsTroponin results in patients taking biotin who exhibit renal impairment (eGFR <60) or in patients taking more than 20 mg/day of biotin. Jorge L Ngo MD LAB BLOOD ORDERABLES Final Result [facility] [address] [place] [address], * ECG 12 lead (07/29/2025 6:25 AM EDT) Pathologist [facility] Ventricular Rate ECG 71 BPM GEMUSE Atrial Rate 71 BPM GEMUSE P-R Interval 148 ms GEMUSE QRS Duration 90 ms GEMUSE Q-T Interval 432 ms GEMUSE QTc 469 ms GEMUSE P Wave Heber 64 degrees GEMUSE R Heber 50 degrees GEMUSE T Heber 42 degrees GEMUSE ECG Interpretation Normal sinus rhythm When compared with ECG of 29-JUL-2025 05:32, (unconfirmed) No significant change was found Confirmed by MARY JO CHAVARRIA ([id number]) on 07/30/2025 7:52:58 AM GEMUSE 07/29/2025 6:25 AM EDT 07/30/2025 7:52 AM EDT Jorge L Ngo MD ECG ORDERABLES Final Resul t GEMUSE * Ethanol (07/29/2025 6:01 AM EDT) Ethanol Level 9 0 - 10 mg/dL LAB CHEMISTRY METHOD 07/29/2025 7:[address] [facility] Blood Venous blood specimen / Unknown Venipuncture / Unknown 07/29/2025 6:01 AM EDT 07/29/2025 6:51 AM EDT Princess CORONA LAB BLOOD ORDERABLES Fin al Result Performing Organization Address City/[facility]/ZIP Co de Phone Number [facility] [address] [place] [address], [place] [phone] * (ABNORMAL) CBC auto differential (07/29/2025 6:01 AM EDT) WBC 11.6(H) 4.8 - 10.8 K/mcL LAB HEMETOLOGY METHOD 07/29/2025 6:[address] [facility] RBC 4.40 3.80 - 4.80 M/mcL LAB HEMETOLOGY METHOD 07/29/2025 6:[address] [facility] Hemoglobin 12.5 11.5 - 16.0 g/dL LAB HEMETOLOGY METHOD 07/29/2025 6:[address] [facility] Hematocrit 37.6 35.0 - 47.0 % LAB HEMETOLOGY [facility]29[facility]2025 6[facility] MCV 85.8 79.0 - 98.0 FL LAB HEMETOLOGY METHOD 07/29/2025 6:58 [facility] MCH 28.5 27.0 - 32.0 pcg LAB HEMETOLOGY METHOD 07/29/2025 6:58 [facility] MCHC 33.2 32.0 - 37.0 g/dL LAB HEMETOLOGY METHOD 07/29/2025 6:58 AM [facility] RDW 12.8 11.0 - 15.0 % LAB HEMETOLOGY METHOD 07/29/2025 6:58 AM [facility] Platelets 442(H) 130 - 400 K/mcL LAB HEMETOLOGY METHOD 07/29/2025 6:58 AM [facility] MPV 9.0 7.0 - 11.0 FL LAB HEMETOLOGY METHOD 07/29/2025 6:58 AM [facility] NRBC 0.0 <1.0 % LAB HEMETOLOGY METHOD 07/29/2025 6:58 AM [facility] NRBC Absolute 0.00 <0.10 K/mcL LAB HEMETOLOGY METHOD 07/29/2025 6:58 AM [facility] Neutrophils Relative 71.1 % LAB HEMETOLOGY METHOD 07/29/2025 6:58 [facility] Lymphocytes Relative 22.9 % LAB HEMETOLOGY METHOD 07/29/2025 6:58 AM [facility] Monocytes Relative 4.6 % LAB HEMETOLOGY METHOD 07/29/2025 6:58 AM [facility] Eosinophils Relative 0.3 % LAB HEMETOLOGY METHOD 07/29/2025 6:[address] [facility] Basophils Relative 0.5 % LAB HEMETOLOGY METHOD 07/29/2025 6:[address] [facility] Immature Granulocytes Relative 0.6 % LAB HEMETOLOGY METHOD 07/29/2025 6:[address] [facility] Neutrophils Absolute 8.26(H) 1.50 - 7.00 K/mcL LAB HEMETOLOGY METHOD 07/29/2025 6:[address] [facility] Lymphocytes Absolute 2.67 1.00 - 5.00 K/mcL LAB HEMETOLOGY METHOD 07/29/2025 6:[address] [facility] Monocytes Absolute 0.54 0.20 - 1.00 K/mcL LAB HEMETOLOGY METHOD 07/29/2025 6:[address] [facility] Eosinophils Absolute 0.04 0.00 - 0.50 K/mcL LAB HEMETOLOGY METHOD 07/29/2025 6:[address] [facility] Basophils Absolute 0.06 0.00 - 0.20 K/mcL LAB HEMETOLOGY METHOD 07/29/2025 6:[address] [facility] Immature Granulocytes Absolute 0.07(H) 0.00 - 0.03 K/mcL LAB HEMETOLOGY METHOD 07/29/2025 6:[address] [facility] Blood Venous blood specimen / Unknown Venipuncture / Unknown 07/29/2025 6:01 AM EDT 07/29/2025 6:51 AM EDT us Jorge L Ngo MD LAB BLOOD ORDERABLES Final Result [facility] [address] [place] [address], * B-type natriuretic peptide (07/29/2025 6:01 AM EDT) BNP 3 <=100 pcg/mL LAB CHEMISTRY METHOD 07/29/2025 7:[address] [facility] Blood Venous blood specimen / Unknown Venipuncture / Unknown 07/29/2025 6:01 AM EDT 07/29/2025 6:51 AM EDT Jorge L Ngo MD LAB BLOOD ORDERABLES Final Result Performing Organization Address [facility]/ZIP Co de Phone Number [facility] [address] [place] [address], [place] [phone] * Magnesium (07/29/2025 6:01 AM EDT) [facility] Magnesium 2.2 1.9 - 2.6 mg/dL LAB CHEMISTRY METHOD 07/29/2025 7:[address] [facility] Blood Venous blood specimen / Unknown Venipuncture / Unknown 07/29/2025 6:01 AM EDT 07/29/2025 6:51 AM EDT Jorge L Ngo MD LAB BLOOD ORDERABLES Final Result Performing Organization Address [facility]/ZIP Co de Phone Number [facility] [address] [place] [address], [place] [phone] * Lipase (07/29/2025 6:01 AM EDT) [facility] Lipase 63 13 - 75 unit/L LAB CHEMISTRY METHOD 07/29/2025 7:[address] [facility] Blood Venous blood specimen / Unknown Venipuncture / Unknown 07/29/2025 6:01 AM EDT 07/29/2025 6:51 AM EDT us Jorge L Ngo MD LAB BLOOD ORDERABLES Final Result [facility] [address] [place] [address], [place] [phone] * (ABNORMAL) Comprehensive metabolic panel (07/29/2025 6:01 AM EDT) Sodium 134 133 - 145 mmol/L LAB CHEMISTRY METHOD 07/29/2025 7:19 AM [facility] Potassium 3.0(L) 3.5 - 5.5 mmol/L LAB CHEMISTRY METHOD 07/29/2025 7:19 AM [facility] Chloride 96 96 - 110 mmol/L LAB CHEMISTRY METHOD 07/29/2025 7:19 AM [facility] CO2 28 21 - 32 mmol/L LAB CHEMISTRY METHOD 07/29/2025 7:19 AM [facility] Anion Gap 10 3 - 11 LAB CHEMISTRY METHOD 07/29/2025 7:19 AM [facility] Glucose 97 70 - 100 mg/dL LAB CHEMISTRY METHOD 07/29/2025 7:19 AM [facility] BUN 12 5 - 25 mg/dL LAB CHEMISTRY METHOD 07/29/2025 7:19 AM [facility] Creatinine 0.57 0.50 - 1.10 mg/dL LAB CHEMISTRY METHOD 07/29/2025 7:19 AM [facility] eGFR 107 >=60 mL/min/1. 73m2 LAB CHEMISTRY METHOD 07/29/2025 7:19 AM [facility] Comment:Calculation based on the Chronic Kidney Disease Epidemiology Collaboration (CKD-EPI) equation refit without adjustment for race. BUN/Creatinine Ratio 21.1 LAB CHEMISTRY METHOD 07/29/2025 7:19 AM [facility] Calcium 9.8 8.5 - 10.5 mg/dL LAB CHEMISTRY METHOD 07/29/2025 7:19 AM [facility] AST (SGOT) 23 10 - 42 unit/L LAB CHEMISTRY METHOD 07/29/2025 7:[address] [facility] ALT (SGPT) 26 10 - 60 unit/L LAB CHEMISTRY METHOD 07/29/2025 7:[address] [facility] Alkaline Phosphatase 82 42 - 121 unit/L LAB CHEMISTRY METHOD 07/29/2025 7:[address] [facility] Total Protein 8.6(H) 6.0 - 8.0 g/dL LAB CHEMISTRY METHOD 07/29/2025 7:[address] [facility] Albumin 4.4 3.2 - 5.0 g/dL LAB CHEMISTRY METHOD 07/29/2025 7:[address] [facility] Total Bilirubin 0.3 0.0 - 1.4 mg/dL LAB CHEMISTRY METHOD 07/29/2025 7:[address] [facility] Blood Venous blood specimen / Unknown Venipuncture / Unknown 07/29/2025 6:01 AM EDT 07/29/2025 6:51 AM EDT Jorge L Ngo MD LAB BLOOD ORDERABLES Final Result [facility] [address] [place] [address], * Troponin I high sensitivity (07/29/2025 6:01 AM EDT) High Sensitivity Troponin I 4 <=54 ng/L LAB CHEMISTRY METHOD 07/29/2025 7:[address] [facility] Blood Venous blood specimen / Unknown Venipuncture / Unknown 07/29/2025 6:01 AM EDT 07/29/2025 6:[address] [facility] - 07/29/2025 7:22 AM EDT High levels of biotin in samples may falsely decrease hsTroponin values. Use caution when interpreting hsTroponin results in patients taking biotin who exhibit renal impairment (eGFR <60) or in patients taking more than 20 mg/day of biotin. Jorge L Ngo MD LAB BLOOD ORDERABLES Final Result Performing Organization Address [facility]/ZIP Co de Phone Number [facility] [address] [place] [address], [place] [phone] * ECG 12 lead (07/29/2025 5:32 AM EDT) [facility] Ventricular Rate ECG 77 BPM GEMUSE Atrial Rate 77 BPM GEMUSE P-R Interval 138 ms GEMUSE QRS Duration 86 ms GEMUSE Q-T Interval 412 ms GEMUSE QTc 466 ms GEMUSE P Wave Heber 64 degrees GEMUSE R Heber 38 degrees GEMUSE T Heber 37 degrees GEMUSE ECG Interpretation Normal sinus rhythm Nonspecific ST abnormality When compared with ECG of 28-DEC-2021 18:11, No significant change was found Confirmed by MARY JO CHAVARRIA ([id number]) on 07/30/2025 7:51:58 AM GEMUSE 07/29/2025 5:32 AM EDT 07/30/2025 7:51 AM EDT Jorge L Ngo MD ECG ORDERABLES Final Resul t Performing Organization Address [facility] Co de Phone Number GEMUSE * ECG-Annotated (07/29/2025) Provider Onbase ECG ORDERABLES Final Result documented in this encounter Visit Diagnoses Diagnosis Hypokalemia- Primary Hypopotassemia Intercostal pain Syncope and collapse documented in this encounter Administered Medications Inactive Administered Medications - up to 3 most recent administrations Medication Order MAR Action Action Date Dose Rate Site potassium chloride (KLOR-CON M20) CR tablet 20 mEq 20 mEq, oral, Once, On 07/29/25 at 0927, For 1 dose, Tablet may be swallowed whole (do not crush/chew/suck on) OR broken in half and each half swallowed separately OR dissolved (whole tablet) in ~4 ounces of water (allow ~2 minutes to dissolve, stir well and administer immediately). Given 07/29/2025 9:54 AM EDT 20 mEq potassium chloride (KLOR-CON M20) CR tablet 40 mEq 40 mEq, oral, Once, On Tue07/29/25 at 0727, For 1 dose, Tablet may be swallowed whole (do not crush/chew/suck on) OR broken in half and each half swallowed separately OR dissolved (whole tablet) in ~4 ounces of water (allow ~2 minutes to dissolve, stir well and administer immediately). Given 07/29/2025 7:33 AM EDT 40 mEq sodium chloride 0.9 % bolus 1,000 mL 1,000 mL, intravenous, at 2,000 mL/hr, Administer over 30 Minutes, Once, On Tue07/29/25 at 0607, For 1 dose New Bag 07/29/2025 6:55 AM EDT 1,000 mL 2000 mL/hr documented in this encounter Historical Medications * This list may reflect changes made after this encounter. QUEtiapine (SEROquel) 50 mg tablet Take 1 tablet (50 mg total) by mouth at bedtime. chlorthalidone (HYGROTON) 25 mg tablet Take 1 tablet (25 mg total) by mouth daily. 03/02/2023 amLODIPine (NORVASC) 10 mg tablet Take 1 tablet (10 mg total) by mouth 1 (one) time each day. 04/09/2025 added in this encounter Active and Recently Administered Medications Times are shown in EDT. Scheduled Medication Order 07/27/2025 07/28/2025 07/29/2025 potassium chloride (KLOR-CON M20) CR tablet 20 mEq (COMPLETED)(Linked Group 1) 20 mEq, oral, Once, On Tue07/29/25 at 0927, For 1 dose, Tablet may be swallowed whole (do not crush/chew/suck on) OR broken in half and each half swallowed separately OR dissolved (whole tablet) in ~4 ounces of water (allow ~2 minutes to dissolve, stir well and administer immediately). 0954 (Given - Provid er: Ingrid Angela RN) potassium chloride (KLOR-CON M20) CR tablet 40 mEq (COMPLETED)(Linked Group 1) 40 mEq, oral, Once, On Tue07/29/25 at 0727, For 1 dose, Tablet may be swallowed whole (do not crush/chew/suck on) OR broken in half and each half swallowed separately OR dissolved (whole tablet) in ~4 ounces of water (allow ~2 minutes to dissolve, stir well and administer immediately). 0733 (Given - Provid er: Ingrid Angela RN) sodium chloride 0.9 % bolus 1,000 mL (COMPLETED) 1,000 mL, intravenous, at 2,000 mL/hr, Administer over 30 Minutes, Once, On Tue07/29/25 at 0607, For 1 dose 0655 (New Bag - Prov ider: Vangie Caruso RN)0922 (Stopped - Provider: Ingrid Angela RN) Linked Groups Order Group 1: potassium chloride (KLOR-CON M20) CR tablet 40 mEq (COMPLETED)Jump to med 40 mEq, oral, Once, On Tue07/29/25 at 0727, For 1 dose, Tablet may be swallowed whole (do not crush/chew/suck on) OR broken in half and each half swallowed separately OR dissolved (whole tablet) in ~4 ounces of water (allow ~2 minutes to dissolve, stir well and administer immediately). Followed by potassium chloride (KLOR-CON M20) CR tablet 20 mEq (COMPLETED)Jump to med 20 mEq, oral, Once, On Tue07/29/25 at 0927, For 1 dose, Tablet may be swallowed whole (do not crush/chew/suck on) OR broken in half and each half swallowed separately OR dissolved (whole tablet) in ~4 ounces of water (allow ~2 minutes to dissolve, stir well and administer immediately). documented in this encounter Orders EKG Orders Without Results Count Last Ordered D ate First Ordered Date ECG 12-LEAD 1 07/29/2025 IV Count Last Ordered Date First Orde red Date INSERT PERIPHERAL IV 07/29/2025 documented in this encounter Care Teams Clinical Therapist Relationship Specialty Start Date End Date Physician, Pcp Unknown PCP - General 07/29/25 documented as of this encounter
--- OUTSIDE RECORDS SUMMARY | 2025-08-01 15:30 | XMS_ITS | Encounter Summary ---
Author Organization [employer] Address [address] [facility] [address] [place] [address] Care Team Providers Care Radiation Physicist Name Role Phone Charissa Rojas MD Primary Care Provider [phone] Encounter Details Date Type Department Care Team (Late st Contact Info) Description 08/01/2025 3:30 PM EDT Office Visit [facility] [address] [place] [place], [place] [phone] Charissa Rojas MD [address] [place] [address] Benign hypertension (Primary Dx); Hypokalemia Social History Tobacco Use Types Packs/Day Years Used Date Smoking Tobacco: Never Smokeless Tobacco: Never Alcohol Use Standard Drinks/Week Comments Never 0 (1 standard drink = 0.6 oz pur e alcohol) Depression Answer Date Recorded Patient Health Questionnaire-9 Score 4 03/15/2025 Patient Health Questionnaire-9 Score 4 03/15/2025 Last PHQ-9: Questionnaire Data Not on file 0 03/15/2025 Housing Stability Answer Date Recorded What is your housing situation today? I have philippe mcguire 03/15/[address] you li ve. Do you have problems with any of the following? None of the above 03/15/2025 Food Insecurity Answer Date Recorded Within the past 12 months, y ou worried that your food would run out before you got money to buy more: Never True 03/15/2025 Within the past 12 months,th e food you bought just didn't last and you didn't have enough money to get more: Never True 12/2024 Transportation Answer Date Recorded In the past 12 months, has l ack of transportation kept you from medical appts, meetings, work or from getting things needed for daily living? No 03/15/2025 Utilities Answer Date Recorded In the past 12 months, has t he electric, gas, oil or water company threatened to shut off services in your home? No 03/15/2025 Depression Answer Date Recorded Patient Health Questionnaire-2 Score 3 03/15/2025 Internet Access Answer Date Recorded Internet Access Q1 Yes 03/15/2025 Internet Access Q2 Not on file 03/15/2025 Comments No Sex and Gender Information Value Date Recorded Sex Assigned at Female 09/13/2022 10:14 AM EDT Legal Sex Female 10:14 AM EDT Gender Identity Female 09/13/2022 10:14 AM EDT Sexual Orientation Straight 09/13/2022 10 :14 AM EDT documented as of this encounter Last Filed Vital Signs Vital Sign Reading Time Taken Comments Blood Pressure 147/89 08/01/2025 3:30 PM EDT Pulse 74 08/01/2025 3:30 PM EDT Temperature - - Respiratory Rate 20 08/01/2025 3:30 PM EDT Oxygen Saturation 99% 08/01/2025 3:30 PM EDT Inhaled Oxygen Concentration - - Weight 59 kg (130 lb) 08/01/2025 3:30 PM EDT Height 159 cm (5' 2.6 ) 08/01/2025 3:30 PM EDT Body Mass Index 23.32 08/01/2025 3:30 PM EDT documented in this encounter Progress Notes * Charissa Rojas MD - 08/01/2025 3:30 PM EDT SUBJECTIVE Olena Pascual is a 55 y.o. female who presents for No chief complaint on file.. HPI Patient with history of hypertension and chronic kidney disease presented herself with 2 days of chest discomfort. Patient described the chest pain as a left-sided chest pain, stabbing in nature. Notexacerbated by exertion. She reported recent runny nose and nonproductive cough. Has had a similar symptom in the past which resolved on its own. No history of recent travel or surgery. Labs: Troponin high-sensitivity normal. Lipase: Normal. Magnesium: Normal. BNP normal. Ethanol: Normal. Potassium: 3.0. EKG: Normal sinus rhythm, no acute ischemic changes or evidence of arrhythmia. Chest x-ray: Lungs are clear, no pleural effusion or pneumothorax, cardiac silhouette and bones arenormal. Impression: Costochondritis For the incidental finding of low potassium patient was treated with KCl p.o. Patient reports doing better during the evaluation today. The chest pain has decreased. She was started on naproxen to use outpatient but she does not like taking the naproxen and would like a new medication. Did not take her blood pressure medications today. Would like to get 2 more days to rest at home to recover. Problem List[1] Allergies[2] Medications Ordered Prior to Encounter[3] Review of Systems Constitutional: Negative for activity [...] behavioral problems, confusion and decreased concentration. OBJECTIVE There were no vitals filed for this visit. Physical Exam Constitutional: General: She is not in acute distress. Appearance: Normal appearance. She is not ill-appearing, toxic-appearing or diaphoretic. Cardiovascular: Rate and Rhythm: Normal rate. Pulmonary: Effort: Pulmonary effort is normal. Abdominal: Palpations: Abdomen is soft. Neurological: General: No focal deficit present. Mental Status: She is alert. Assessment/Plan Assessment/Plan Diagnoses and all orders for this visit: Benign hypertension Comments: Compliance to medication reinforced Follow-up in 3 months DASH diet. Orders: - CBC auto differential; Future - Comprehensive Metabolic Panel; Future - Lipid Panel, Standard; Future - TSH with Reflex to Free T4; Future Hypokalemia Comments: Repeat BMP Patient will be contacted with results. [1] Patient Active Problem List Diagnosis Anemia of chronic disease Benign hypertension Depressive disorder Hypertensive heart and renal disease with (congestive) heart failure (CMS/HCC) Stage 1 chronic kidney disease Mass of upper inner quadrant of right breast Cervical cancer screening Generalized anxiety disorder Primary insomnia [2] No Known Allergies [3] Current Outpatient Medications on File Prior to Visit Medication Sig Dispense Refill amLODIPine (Norvasc) 10 MG tablet TOME SEMAJ TABLETA TODOS LOS ARAUJO 90 tablet 1 atorvastatin (Lipitor) 40 MG tablet Take 1 tablet by mouth. Blood Pressure kit 1 Units Once per day. 1 kit 0 chlorthalidone (Hygroton) 25 MG tablet Take 1 tablet (25 mg) by mouth Once per day. 90 tablet 1 cholecalciferol ( Vitamin D) 25 MCG (1000 [...] 1 tablet by mouth at bed time. PARoxetine (Paxil) 20 MG tablet TOME 1 TABLETA POR V A ORAL TODOS LOS D EN LA MA JANAY QUEtiapine (SEROquel) 50 MG tablet TOME 1 TABLETA POR V A ORAL TODOS LOS D AL ACOSTARSE SEG N LOINDICADO No current facility-administered medications on file prior to visit. documented in this encounter Plan of Treatment Upcoming Encounters Date Type Department Care Team ([facility] st Contact Info) Description 10/02/2025 10:30 AM EST Office Visit [facility] [address] [place] [address] Charissa Rojas MD [address] [place] [address] Scheduled Orders Name Type Priority Associated Diagnoses Orde r Schedule CBC auto differential Lab Routine Benign hypertension Expected: 08/01/2025 (Approximate), Expires: 08/01/2026 Comprehensive Metabolic Panel Lab Routine Benign hypertension Expected: 08/01/2025 (Approximate), Expires: 08/01/2026 Lipid Panel, Standard Lab Routine Benign hypertension Expected: 08/01/2025 (Approximate), Expires: 08/01/2026 TSH with Reflex to Free T4 Lab Routine Benign hypertension Expected: 08/01/2025 (Approximate), Expires: 08/01/2026 documented as of this encounter Visit Diagnoses Diagnosis Benign hypertension- Primary Essential hypertension, benign Hypokalemia Hypopotassemia documented in this encounter Additional Health Concerns Assessment Noted Time PHQ-9 Depression Total Score: 4 03/15/20 25 2:36 PM EDT documented as of this encounter Care Teams Radiation Physicist Relationship Specialty Start Date End Date Charissa Rojas MD [address] [place] [id number] PCP - General Internal Medicine 03/09/12 Mikey Daniels MD Psychiatrist 04/09/25 documented as of this encounter
--- OUTSIDE RECORDS SUMMARY | 2025-08-02 12:02 | XMS_ITS | Encounter Summary ---
Author Organization [employer] Address [address] [facility] [address] [place] [address] Care Team Providers Care Putty Maker Name Role Phone Charissa Rojas MD Primary Care Provider [phone] Encounter Details Date Type Department Care Team (Latest Contact Info) Description 08/01/2025 Travel Social History Tobacco Use Types Packs/Day [...] Care Team (Late st Contact Info) Description 10/02/2025 10:30 AM EST Office Visit [facility] [address] [place] [address] Charissa Rojas MD [address] [place] [address] documented as of this encounter Visit Diagnoses Not on filedocumented in this encounter Additional Health Concerns Assessment Noted Time PHQ-9 Depression Total Score: 4 03/15/20 25 2:36 PM EDT documented as of this encounter Care Teams Putty Maker Relationship Specialty Start Date End Date Charissa Rojas MD [address] [place] [address] PCP - General Internal Medicine 03/09/12 Mikey Daniels MD Psychiatrist 04/09/25 documented as of this encounter
--- OUTSIDE RECORDS SUMMARY | 2025-08-02 12:02 | XMS_ITS | Clinical Summary ---
Author Organization [facility] Address [address] [place] [id number] Care Team Providers Care Clinical Research Director Name Role Phone Unavailable Primary Care Provider Unavailabl e Allergies No known active allergies Medications metoprolol succinate XL (TOPROL XL) 25 MG 24 hr tablet Take 25 mg by mouth 1 (one) time each day 2 Active simvastatin (ZOCOR) 20 MG tablet Take 20 mg by mouth 1 (one) time each day 2 Active Multiple Vitamin (MULTIVITAMIN ADULT PO) Take 1 capsule by mouth 1 (one) time each day Active QUEtiapine (SEROquel) 50 MG tablet TOME SEMAJ TABLETA TODOS LOS D AL ACOSTARSE SEG N LO INDICADO 2 Active amLODIPine (NORVASC) 5 MG tablet TOME SEMAJ TABLETA TODOS LOS ARAUJO 30 tablet 9 2 Active chlorthalidone 25 MG tablet TAKE 1/2 TABLET POR VIA ORAL TODOS LOS ARAUJO 45 tablet 3 3 Active Active Problems Problem Noted Date Diagnosed Date Anemia of chronic disease 07/06/2021 Chronic kidney disease stage 1 07/06/2021 Hypertensive heart and renal disease with (congestive) heart failure 07/06/2021 Depressive disorder 05/09/2010 07/27/2023 Resolved Problems Problem Noted Date Diagnosed Date Resolved Date Essential hypertension 07/06/202107/06 Family History Relation Status Comments Father Unknown Mother Unknown Social History Tobacco Use Types Packs/Day Years Used Date Smoking Tobacco: Never Smokeless Tobacco: Never Alcohol Use Standard Drinks/Week Comments No 0 (1 standard drink = 0.6 oz pur e alcohol) Comments Unknown Sex and Gender Information Value Date Recorded Sex Assigned at Not on file Legal Sex Female 5:06 PM EST Gender Identity Not on file Sexual Orientation Not on file Last Filed Vital Signs Vital Sign Reading Time Taken Comments Blood Pressure 127/64 07/28/2022 2:06 PM EDT Pulse 76 07/28/2022 2:06 PM EDT Temperature - - Respiratory Rate - - Oxygen Saturation 96% 07/28/2022 2:06 PM EDT Inhaled Oxygen Concentration - - Weight 63.4 kg (139 lb 12.8 oz) 07/28/2022 2:06 PM EDT Height 157.5 cm (5' 2 ) 11/21/2019 12:0 0 PM EST Body Mass Index 25.57 11/21/2019 12:00 PM EST Plan of Treatment Health Maintenance Due Date Last Done Comments Breast Cancer Screening 1970 Hepatitis B Vaccine (1 of 3 - 19+ 3-dose series) 1989 Pneumococcal Vaccine: 50+ Ye ars (1 of 2 - PCV) 1989 Colorectal Cancer Screening: Annual FOBT 2019 Colorectal Cancer Screening: Colonoscopy 2019 Colorectal Cancer Screening: Sigmoidoscopy 2019 Influenza Vaccine (#1) 2025 6, 09/11/2015, 08/30/2013, Additional history exists Insurance * Guarantor: Olena Pascual Account Type Relation to Patient Date of Phone Billing Address Personal/Family Self [address] [place] [address] Medicaid [place] * Guarantor: Olena Pascual Account Type Relation to Patient Date of Phone Billing Address Personal/Family Self [address] [place] [address] [place]
--- OUTSIDE RECORDS SUMMARY | 2025-08-02 12:02 | XMS_ITS | Encounter Summary ---
Author Organization [facility] Address [address] [facility] [address] [facility] [address] [place] [address] Phone Care Team Providers Care Retail Asset Protection Specialist Name Role Phone Unavailable Primary Care Provider Unavailabl e Reason for Visit * Reason Comments Med Refill Encounter Details Date Type Department Care Team (Late st Contact Info) Description 09/07/2021 Refill [facility] [address] [facility] [address] [place] [address] Jorge L Downing MD [address] [facility] [address] [place] [address] Social History Tobacco Use Types Packs/Day Years [...] on file documented as of this encounter Plan of Treatment Not on file documented as of this encounter Visit Diagnoses Not on filedocumented in this encounter
--- OUTSIDE RECORDS SUMMARY | 2025-08-02 12:02 | XMS_ITS | Clinical Summary ---
Author Organization [employer] Address [address] [facility] [address] [place] [address] Care Team Providers Care Watch Repairer Name Role Phone Charissa Rojas MD Primary Care Provider Allergies No known active allergies Medications cyclobenzaprine (Flexeril) 5 MG tablet TOME SEMAJ TABLETA TODOS LOS ARAUJO AL ACOSTARSE 30 tablet 3 3 Active atorvastatin (Lipitor) 40 MG tablet Take 1 tablet by mouth. 1 Active Diclofenac Sodium 1 % gel APLIQUE AL MARINA AFECTADA TOPICAMENTE 2 VECES AL MARIELOS. 2 Active cholecalciferol (KP Vitamin D) 25 MCG (1000 UT) capsule Take 1 capsule by mouth. 6 Active loratadine (Claritin) 10 MG tablet Take 1 tablet by mouth at bed time. 9 Active Diclofenac Sodium 1 % gelIndications:A cute pain of right knee TO APPLY TO THE AFFECTED AREA 3 TIMES A DAY 100 g 4 Active QUEtiapine (SEROquel) 50 MG tablet TOME 1 TABLETA POR V A ORAL TODOS LOS D AL ACOSTARSE SEG N LO INDICADO Active PARoxetine (Paxil) 20 MG tablet TOME 1 TABLETA POR V A ORAL TODOS LOS D EN LA MA JANAY 5 Active chlorthalidone (Hygroton) 25 MG tablet Take 1 tablet (25 mg) by mouth Once per day. 90 tablet 1 5 Active amLODIPine (Norvasc) 10 MG tabletIndication s:Benign hypertension TOME SEMAJ TABLETA TODOS LOS ARAUJO 90 tablet 1 5 Active Blood Pressure kitIndications:B enign hypertension 1 Units Once per day. 1 kit Active Active Problems Problem Noted Date Diagnosed Date Mass of upper inner quadrant of right breast Assessment & Plan (04/09/2025 11:43 AM EDT): Notes on exam. Following CRICO guidelines will order diagnostic mammo + breast US. Recommended f/up with PCP. Cervical cancer screening 04/09/2025 Assessment & Plan (04/09/2025 11:44 AM EDT): 55 y.o. here for cervical cancer screening. Will continue monitoring following ASCCP guidelines. Generalized anxiety disorder 04/09/2025 Primary insomnia 04/09/2025 Anemia of chronic disease 07/06/2021 Hypertensive heart and renal disease with (congestive) heart failure 07/06/2021 Stage 1 chronic kidney disease 07/06/2021 Depressive disorder 05/09/2010 Benign hypertension 05/09/1993 Assessment & Plan (04/09/2025 11:43 AM EDT): Patient non compliant with medications, reports was using metoprolol 50 mg (medication not in list and when med rec was done last rx'ed in 2021). Last refill of meds was in 2023. Will send amlodipine 10 mg and chlorthalidone 25 mg. Has a scheduled appt with PCP in June, will send to nursing. Target BP <130/80 mmHg Reviewed med side effects Lab Results Component Value Date K 3.7 03/15/2025 Lab Results Component Value Date CREATININE 0.76 03/15/2025 No results found for: ALBUMIN Recommend lifestyle modification: Weight loss, DASH diet, High K, Low Na, Aerobic exercise, and reduce intake of alcohol Encounters Date Type Department Care Team Description 08/01/2025 3:30 PM EDT Office Visit [facility] [address] [place] [address] Charissa Rojas MD Benign hypertension (Primary Dx); Hypokalemia 08/01/2025 Travel 07/29/2025 Telephone [facility] MEDICINE [address] [place] [address] Charissa Rojas MD ER Follow-up 05/06/2025 Telephone [facility] PEDS [address] [place] [address] Charissa Rojas MD requeting a call back 05/03/2025 Results Follow-Up [facility] [address] [place] [address] Aye Zuleta MD Pap Smear, BI US Breast Complete Right from Last 3 Months Immunizations Immunization Administration Dates Next Due Influenza injectable quadriv [...] Tobacco: Never Tobacco Cessation:Counseling Given: Not Answered Alcohol Use Standard Drinks/Week Comments Never 0 (1 standard drink = 0.6 oz pur e alcohol) Depression Answer Date Recorded Patient Health Questionnaire-9 Score 4 03/15/2025 Patient Health Questionnaire-9 Score 4 03/15/2025 Last PHQ-9: Questionnaire Data Not on file 0 03/15/2025 Housing Stability Answer Date Recorded What is your housing situation today? I have philippeayaka mcguire 03/15/[address] you [...] Pulse 74 08/01/2025 3:30 PM EDT Temperature 37.1 C (98.7 F) 04/09/2025 10:48 AM EDT Respiratory Rate 20 08/01/2025 3:30 PM EDT Oxygen Saturation 99% 08/01/2025 3:30 PM EDT Inhaled Oxygen Concentration - - Weight 59 kg (130 lb) 08/01/2025 3:30 PM EDT Height 159 cm (5' 2.6 ) 08/01/2025 3:30 PM EDT Body Mass Index 23.32 08/01/2025 3:30 PM EDT Plan of Treatment Upcoming Encounters Date Type Department Care Team (Late st Contact Info) Description 10/02/2025 10:30 AM EST Office Visit [facility] MED [facility] PEDS [address] [place] [address] Charissa Rojas MD [address] [place] [address] Health Maintenance Due Date Last Done Comments CT Colonography 1970 Colonoscopy 1970 Colorectal Cancer Screening 1970 FIT DNA/Cologuard 1970 FIT 1970 FOBT 1970 Sigmoidoscopy 1970 Disability Screening 1970 Hepatitis B Vaccines (1 of 3 - 19+ 3-dose series) 1989 Zoster Vaccines (1 of 2) 2020 COVID-19 Vaccine ( season) 2025 01/09/2022, 04/08/2021, 03/18/2021 Influenza Vaccine (#1) 2025 8, 08/10/2016, 09/11/2015, Additional history exists Alcohol/Substance Use Screening 03/15/2026 03/15/2025 Depression Screening 03/15/2026 03/15/2025, 03/15/20 SDOH Screening 03/15/2026 03/15/2025 Tobacco Screening 04/09/2026 04/09/2025 Diagnostic Breast Imaging 05/06/2026 05/06/2025 Pap Smear 04/09/2028 04/09/2025 Lipid Panel 03/15/2030 03/15/2025, 02/24/2021 Cervical Cancer Screening 04/09/2030 HPV/Cotest 04/09/2030 04/09/2025, 05/31/2017 DTaP/Tdap/Td Vaccines (3 - Td or Tdap) 03/15/2035 03/15/2025, 02/15/2014 RSV Patients and Patients Aged 60 years or older (1 - 1-dose 75+ series) 2045 HIV Screening Completed 03/15/2025 Hepatitis C Screening Completed 03/15/2025 Pneumococcal Vaccine: 50+ Years Completed 03/15/2025 HIB [...] patient's age to complete this topic Meningococcal B Vaccine Aged Out No l onger eligible based on patient's age to complete [...] Procedure Name Priority Date/Time Associated Diagnosis Comments BI US BREAST COMPLETE RIGHT Routine 05/06/2025 Mass of upper inner quadrant of right breast HPV DNA, LOW/HIGH RISK Routine 04/09/2025 11:33 AM EDT Cervical cancer screening PAP SMEAR Routine 04/09/2025 11:33 AM EDT Cervical cancer screening HEPATITIS C VIRAL RNA, QUANTITATIVE, REAL-TIME PCR Routine 03/15/2025 2:56 PM EDT Annual physical exam HIV 1/2 ANTIGEN/ANTIBODY, FOURTH GENERATION W/RFL Routine 03/15/2025 2:56 PM EDT Annual physical exam LIPID PANEL, STANDARD Routine 03/15/2025 2:56 PM EDT Annual physical exam from Last 3 Months or Most Recently Relevant to Health Maintenance Results * BI US Breast Complete Right (05/06/2025) Anatomical Region Laterality Modality Breast Right Ultrasound us Aye Zuleta MD IMG US PROCEDURES Final Resul t * HPV High Risk with Reflex to Subtypes (04/09/2025 11:33 AM EDT) HPV High Risk Negative Negative [facility] HPV Genotype 16 Negative Negative [facility] HPV Genotype 18 Negative Negative [facility] Comment:HPV testing performe d at [facility] (CLIA#[id number]), [address] [place] [address].Testing for HPV was performed using the Sh[employer] SOL 6800system. The presence of HPV in the female genital tract isassociated with a number of diseases, including cervicalcarcinoma. The HPV DNA high risk pool tests for HPV 31, 33,35, 39, 45, 51, 52, 56, 58, 59, 66 and 68. The testing forHPV 16 and 18 genotypes has also been performed. A positiveresult indicates detection of nucleic acid sequences fromone or more subtypes, whereas a negative result indicatessuch sequences were not detected. Pap Vial 04/09/2025 11:3 3 AM EDT 04/10/2025 9:00 AM EDT us Aye Zuleta MD LAB BLOOD ORDERABLES Final Re sult [facility] [address] [place] [phone] [phone] * Pap Smear (04/09/2025 11:33 AM EDT) Swab Cervical swab / Unknown 04/09/2025 11:33 AM EDT 04/10/2025 9:00 AM EDT Narrative [facility] - 04/12/2025 10:26 AM EDT ----- ------- Name: Olena Pascual Age/Sex: 55/F : 1970 Unit#: [id number] Attend Dr: Aye Zuleta MD Re04/09/25 Status: [facility] Disch: ----- ------- SPEC : [id number] RECD: 04/10/25 STATUS: MILVIA BOWMAN NUM: [id number] DALE: 04/09/25-[address] [facility] [address]: Aye Zuleta MD ENTERED: 04/10/25 SP TYPE: Pap Smr OT DR: ORDERED: Pap Smear Interpretation Satisfactory for evaluation. Negative for intraepithelial lesion or malignancy. No endocervical cells seen. Coccobacilli consistent with shift in vaginal alee. HPV High Risk: Negative HPV Genotyping 16: Negative HPV Genotyping 18: Negative Clinical Information LMP: 11/14/2023 Previous PAP test: Unknown date/findings Material Received ThinPrep-Cervical PAP Disclaimer As of September 05, 2024, the technical services to include automated prescreening performed by the ThinPrep Imaging System, PAP screening and HPV testing will be performed at [facility] (CLIA #[id number]), [address] [place] [address]. Testing for HPV was performed using the [employer] system. The presence of HPV in the female genital tract is associated with a number of diseases, including cervical carcinoma. The HPV DNA high risk pool tests for HPV 31, 33, 35, 39, 45, 51, 52, 56, 58, 59, 66 and 68. The testing for HPV 16 and 18 genotypes has also been performed. A positive result indicates detection of nucleic acid sequences from one or more subtypes, whereas a negative result indicates such sequences were not detected. All professional services are performed by [facility] ([address] [place] [address]; ; CLIA #[id number]). The PAP Test is a screening procedure with the inherent possibility of both false negative and false positive results. Results should be interpreted in the context of historic and current clinical findings. Reliability of the PAP Test is enhanced by performing the test on a regular repetitive basis. CONTINUED ON NEXT PAGE ----- ------- Name: Olena Pascual Age/Sex: 55/F : 1970 Unit#: [id number] Attend Dr: Aye Zuleta MD Re04/09/25 Status: DEP REF Location: [facility] Disch: ----- ------- SPEC : [id number] RECD: 04/10/25 STATUS: MILVIA BOWMAN NUM: [id number] DALE: 04/09/[address] [facility] [address]: Aye Zuleta MD ENTERED: 04/10/25 SP TYPE: Pap Smr OT DR: ORDERED: Pap Smear ----- ------- Signed (signature on file) FELIPA Alonzo (ASC) 04/12/25 1026 ----- ------- END OF REPORT us Aye Zuleta MD LAB CYTOLOGY ORDERABLES Final Result [facility] [address] [place] [phone] * Hepatitis C Viral RNA, Quantitative, Real-Time PCR (03/15/2025 2:56 PM EDT) Hepatitis C Viral Load <15 NOT DETECTED NOT DETECTED IU/mL [facility] HCV Log PCR <1.18 NOT DETECTED NOT DETECTED Log IU/mL [facility] Comment:For additional infor janay, please refer [email or web address]/faq/QHL87j8(This link is being provided for informational/educational purposes only.)THIS TEST WAS PERFORMED AT:[facility] [place] [phone] SAEED MD Blood Venous blood specimen / Unknown 03/15/2025 2:56 PM EDT 03/15/2025 5:44 PM EDT us Charissa Rojas MD LAB BLOOD ORDERABLES Final Result Performing Organization Address [facility]/ZIP Co de Phone Number [facility] [address] [place] [phone] * HIV-1/2 Antigen and Antibodies, Fourth Generation, with Reflexes (03/15/2025 2:56 PM EDT) HIV AB/AG Nonreactive Nonreactive [facility] Comment:HIV-1 p24 Ag and/or HIV-1/HIV-2 Ab not detected.A test result that is nonreactive does not exclude thepossibility of exposure to or infection with HIV-1 and/orHIV-2. Nonreactive results in this assay for individualswith prior exposure to HIV-1 and/or HIV-2 may be due toantigen and antibody levels that are below the limit ofdetection of this assay.The [employer] Radian[employer]ni[employer]Free HIV Ag/Ab Combo assay result andsupplemental assay results should be interpreted inconjunction with the patient's clinical presentation,history and other laboratory results. If the results areinconsistent with clinical evidence, additional testing issuggested to confirm the result. Blood Venous blood specimen / Unknown 03/15/2025 2:56 PM EDT 03/15/2025 5:44 PM EDT us Charissa Rojas MD LAB BLOOD ORDERABLES Final Result Performing Organization Address City/[facility]/ZIP Co de Phone Number [facility] [address] [place] [address] [place] [phone] * (ABNORMAL) Lipid Panel, Standard (03/15/2025 2:56 PM EDT) Triglycerides 289(H) <150 mg/dL [facility] Comment:Desirable Triglyceri de: less than 150 mg/dLBorderline High Triglyceride 150-199 mg/dLHigh Triglyceride: 200-499 mg/dLVery High Triglyceride: greater than or equal to 5OO mg/dL Cholesterol 292(H) <200 mg/dL [facility] Comment:Desirable Cholestero l: less than 200 mg/dLBorderline High Cholesterol: 200-239 mg/dLHigh Cholesterol: greater than 239 mg/dL LDL Cholesterol Calculated 199(H) <100 mg/dL [facility] Comment:Desirable LDL: less than 100 mg/dLNear Optimal/Above Optimal LDL: 110- 129 mg/dLBorderline High LDL: 130-159 mg/dLHigh LDL: 160-189 mg/dLVery High LDL: greater than or equal to 190 mg/dL HDL Cholesterol 36(L) >40 mg/dL [facility] Comment:Desirable HDL: great er than 40 mg/dL Note: This HDL assay may give artificially low results in patients with liver disease. Blood Venous blood specimen / Unknown 03/15/2025 2:56 PM EDT 03/15/2025 5:44 PM EDT Charissa Rojas MD LAB BLOOD ORDERABLES Final Result [facility] [address] [place] [phone] from Last 3 Months or Most Recently Relevant to Health Maintenance Insurance * Guarantor: Olena Pascual Account Type Relation to Patient Date of Phone Billing Address Personal/Family Self 1970 [address] [facility] [address] [place] [address] [facility] C3 Care Teams Watch Repairer Relationship Specialty Start Date End Date Charissa Rojas MD [address] [place] [phone] PCP - General Internal Medicine 03/09/12 Mikey Daniels MD Psychiatrist 04/09/25
--- OUTSIDE RECORDS SUMMARY | 2025-08-02 12:02 | XMS_ITS | Encounter Summary ---
Author Organization [employer] Address [address] [facility] [address] [place] [address] Care Team Providers Care Binder And Wrapper Packer Name Role Phone Charissa Rojas MD Primary Care Provider [phone] Reason for Visit * Reason Onset Date Comments Nurse Triage 10/19/2023 Encounter Details Date Type Department Care Team ([facility] st Contact Info) Description 10/19/2023 Telephone [facility] [address] [place] [address] Charissa Rojas MD [address] [place], [place] [phone] Nurse Triage Social History Tobacco Use Types [...] Miscellaneous Notes * Telephone Encounter - Corinne Esquivel - 10/19/2023 3:34 PM EST Symptom: Knee Pain - Not From Injury Outcome: Schedule an urgent appointment (within 1 hour) or talk to a nurse or provider soon Reason: Severe pain now The caller accepted this outcome Telugu speaker documented in this encounter Plan of Treatment Upcoming Encounters Date Type Department Care Team ([facility] st Contact Info) Description 10/02/2025 10:30 AM EST Office Visit [facility] [address] [place] [address] Charissa Rojas MD [address] [place] [address] documented as of this encounter Visit Diagnoses Not on filedocumented in this encounter Care Teams Binder And Wrapper Packer Relationship Specialty Start Date End Date Charissa Rojas MD [address] [place] [address] PCP - General Internal Medicine 03/09/12 Mikey Daniels MD Psychiatrist 04/09/25 documented as of this encounter
--- OUTSIDE RECORDS SUMMARY | 2025-08-02 12:02 | XMS_ITS | Clinical Summary ---
Author Organization [facility] Address [address] [place] [address] Phone Care Team Providers Care Wire Mill Operator Name Role Phone Physician, Pcp Unknown Primary Care Provider Kelsey vailable Allergies No known active allergies Medications amLODIPine (NORVASC) 10 mg tablet Take 1 tablet (10 mg total) by mouth 1 (one) time each day. 04/09/2025 Active chlorthalidone (HYGROTON) 25 mg tablet Take 1 tablet (25 mg total) by mouth daily. 03/02/2023 Active QUEtiapine (SEROquel) 50 mg tablet Take 1 tablet (50 mg total) by mouth at bedtime. Active naproxen (NAPROSYN) 500 mg tablet Take 1 tablet (500 mg total) by mouth 2 (two) times a day with meals. 60 each 07/29/2025 Active Active Problems No known active problems Encounters Date Type Department Care Team Description 07/29/2025 6:15 AM EDT - 07/29/2025 9:57 AM EDT Emergency [facility] Emergency [address] [place] [address] Hypokalemia (Primary Dx); Intercostal pain; Syncope and collapse Discharge Disposition: Home or Self Care from Last 3 Months Social History Tobacco Use Types Packs/Day Years Used Date Smoking Tobacco: Never Assessed Comments Unknown Sex and Gender Information Value Date Recorded Sex Assigned at Not on file Legal Sex Female 11:25 AM EST Gender Identity Not on file Sexual Orientation Not on file Obstetrics History Last Filed Vital Signs Vital Sign Reading [...] Mass Index 27.44 07/29/2025 5:31 AM EDT Plan of Treatment Health Maintenance Due Date Last Done Comments Breast Cancer Screening 1970 Hepatitis B Vaccines (1 of 3 - 19+ 3-dose series) 1989 Zoster Vaccines (1 of 2) 2020 Depression Screening 11/14/2024 COVID-19 Vaccine ( season) 2025 01/09/2022, 04/08/2021, 03/18/2021 Influenza Vaccine (#1) 2025 8, 08/10/2016, 09/11/2015, Additional history exists Colorectal Cancer Screening: Colonoscopy 07/29/2025 Hepatitis C Screening 07/29/2025 Social Influencers of Health Screening 07/29/2025 Hypertension/CHF/CAD Annual BMP Blood Test 07/29/2026 07/29/2025 Cervical Cancer Screening: Pap Smear 04/09/2028 04/09/2025 Cholesterol Screening (Lipid Panel) 03/15/2030 03/15/2025 DTaP,Tdap,and Td Vaccines (3 - Td or Tdap) 03/15/2035 03/15/2025, 02/15/2014 RSV Immunization Adult Patients (1 - 1-dose 75+ series) 2045 HIV Screening Completed 03/15/2025 Pneumococcal Vaccine: 50+ Years [...] on patient's age to complete this topic MMR Vaccines Aged Out No longer eligi ble based on patient's age to complete this topic Meningococcal ACWY Vaccine Aged Out N o longer eligible based on patient's age to complete this topic Meningococcal B Vaccine Aged Out No l onger eligible based on patient's age to complete this topic RSV Immunization Patients Under 20 months Aged Out No longer eligible based on patient's age to complete this topic Varicella Vaccines Aged Out No longer eligible based on patient's age to complete this topic Procedures Procedure Name Priority Date/Time Associated Diagnosis Comments ECG ANNOTATED 07/30/2025 XR CHEST 2 VIEWS STAT 07/29/2025 8:45 AM EDT TROPONIN I HIGH SENSITIVITY Timed 07/29/2025 7:20 AM EDT ECG 12-LEAD STAT 07/29/2025 6:25 AM EDT ETHANOL Add-On 07/29/2025 6:01 AM EDT CBC WITH AUTO DIFFERENTIAL STAT 07/29/2025 6:01 AM EDT B-TYPE NATRIURETIC PEPTIDE STAT 07/29/2025 6:01 AM EDT MAGNESIUM STAT 07/29/2025 6:01 AM EDT LIPASE STAT 07/29/2025 6:01 AM EDT COMPREHENSIVE METABOLIC PANEL STAT 07/29/2025 6:01 AM EDT CBC AND DIFFERENTIAL STAT 07/29/2025 6:01 AM EDT TROPONIN I HIGH SENSITIVITY Timed 07/29/2025 6:01 AM EDT ECG 12-LEAD STAT 07/29/2025 5:32 AM EDT ECG ANNOTATED 07/29/2025 from Last 3 Months Results * ECG-Annotated (07/30/2025) Only the most recent of2 resultswithin the time period is included. us Provider Onbase ECG ORDERABLES Final Result * XR Chest 2 Views (07/29/2025 8:45 AM EDT) Anatomical Region Laterality Modality Body Radiographic Yakelin ging 07/29/2025 8:48 AM EDT Impressions 07/29/2025 9:03 AM EDT FINDINGS/IMPRESSION: Lungs are clear. No pleural effusion or pneumothorax. Cardiac silhouette and bones are normal. Cholecystectomy clips.. -------- FINAL REPORT -------- Dictated By: BRADLEY DRISCOLL Dictated Date: 07/29/2025 08:48 ET Assigned Physician: BRADLEY DRISCOLL Reviewed and Electronically Signed By: BRADLEY DRISCOLL Signed Date: 07/29/2025 09:03 ET Workstation ID: [id number] Transcribed By: Self Edit Transcribed Date: 07/29/2025 08:48 ET Narrative 07/29/2025 9:03 AM EDT XR CHEST 2 VIEWS INDICATION: 12/28/2021 TECHNIQUE: XR CHEST 2 VIEWS COMPARISON: Chest pain. Procedure Note Bradley Driscoll MD - 07/29/2025 XR CHEST 2 VIEWS INDICATION: 12/28/2021 TECHNIQUE: XR CHEST 2 VIEWS COMPARISON: Chest pain. IMPRESSION: FINDINGS/IMPRESSION: Lungs are clear. No pleural effusion orpneumothorax. Cardiac silhouette and bones are normal. Cholecystectomyclips.. -------- FINAL REPORT -------- Dictated By: BRADLEY DRISCOLL Dictated Date: 07/29/2025 08:48 ET Assigned Physician: BRADLEY DRISCOLL Reviewed and Electronically Signed By: BRADLEY DRISCOLL Signed Date: 07/29/2025 09:03 ET Workstation ID: [id number] Transcribed By: Self Edit Transcribed Date: 07/29/2025 08:48 ET Jorge L Ngo MD IMG XR PROCEDURES Final Res ult * Troponin I high sensitivity (07/29/2025 7:20 AM EDT) Only the most recent of2 resultswithin the time period is included. [facility] High Sensitivity Troponin I 4 <=54 ng/L LAB CHEMISTRY METHOD 07/29/2025 8:25 AM EDT [facility] Blood Venous blood specimen / Unknown Venipuncture / Unknown 07/29/2025 7:20 AM EDT 07/29/2025 7:55 AM EDT Narrative [facility] - 07/29/2025 8:25 AM EDT High levels of biotin in samples may falsely decrease hsTroponin values. Use caution when interpreting hsTroponin results in patients taking biotin who exhibit renal impairment (eGFR <60) or in patients taking more than 20 mg/day of biotin. us Jorge L gNo MD LAB BLOOD ORDERABLES Final Result Performing Organization Address City/[facility]/ZIP Co de Phone Number [facility] [address] [place] [address], [place] [phone] * ECG 12 lead (07/29/2025 6:25 AM EDT) Only the most recent of2 resultswithin the time period is included. [facility] Ventricular Rate ECG 71 BPM GEMUSE Atrial Rate 71 BPM GEMUSE P-R Interval 148 ms GEMUSE QRS Duration 90 ms GEMUSE Q-T Interval 432 ms GEMUSE QTc 469 ms GEMUSE P Wave [place] 64 degrees GEMUSE R [place] 50 degrees GEMUSE T [place] 42 degrees GEMUSE ECG Interpretation Normal sinus rhythm When compared with ECG of 29-JUL-2025 05:32, (unconfirmed) No significant change was found Confirmed by MARY JO CHAVARRIA ([id number]) on 07/30/2025 7:52:58 AM GEMUSE 07/29/2025 6:25 AM EDT 07/30/2025 7:52 AM EDT Jorge L Ngo MD ECG ORDERABLES Final Resul t GEMUSE * (ABNORMAL) CBC auto differential (07/29/2025 6:01 AM EDT) [facility] WBC 11.6(H) 4.8 - 10.8 K/mcL LAB HEMETOLOGY METHOD 07/29/2025 6:58 AM EDT [facility] RBC 4.40 3.80 - 4.80 M/mcL LAB HEMETOLOGY METHOD 07/29/2025 6:58 AM EDT [facility] Hemoglobin 12.5 11.5 - 16.0 g/dL LAB HEMETOLOGY METHOD 07/29/2025 6:58 AM EDT [facility] Hematocrit 37.6 35.0 - 47.0 % LAB HEMETOLOGY METHOD 07/29/2025 6:58 AM EDT [facility] MCV 85.8 79.0 - 98.0 FL LAB HEMETOLOGY METHOD 07/29/2025 6:58 AM EDT [facility] MCH 28.5 27.0 - 32.0 pcg LAB HEMETOLOGY METHOD 07/29/2025 6:58 AM EDT [facility] MCHC 33.2 32.0 - 37.0 g/dL LAB HEMETOLOGY METHOD 07/29/2025 6:58 AM EDT [facility] RDW 12.8 11.0 - 15.0 % LAB HEMETOLOGY METHOD 07/29/2025 6:58 AM EDT [facility] Platelets 442(H) 130 - 400 K/mcL LAB HEMETOLOGY METHOD 07/29/2025 6:58 AM EDT [facility] MPV 9.0 7.0 - 11.0 FL LAB HEMETOLOGY METHOD 07/29/2025 6:[facility] NRBC 0.0 <1.0 % LAB HEMETOLOGY METHOD 07/29/2025 6:58 AM EDT [facility] NRBC Absolute 0.00 <0.10 K/mcL LAB HEMETOLOGY METHOD 07/29/2025 6:58 AM EDT [facility] Neutrophils Relative 71.1 % LAB HEMETOLOGY METHOD 07/29/2025 6:58 AM [facility] Lymphocytes Relative 22.9 % LAB HEMETOLOGY METHOD 07/29/2025 6:58 AM [facility] Monocytes Relative 4.6 % LAB HEMETOLOGY METHOD 07/29/2025 6:58 AM [facility] Eosinophils Relative 0.3 % LAB HEMETOLOGY METHOD 07/29/2025 6:58 AM [facility] Basophils Relative 0.5 % LAB HEMETOLOGY METHOD 07/29/2025 6:58 AM [facility] Immature Granulocytes Relative 0.6 % LAB HEMETOLOGY METHOD 07/29/2025 6:58 AM [facility] Neutrophils Absolute 8.26(H) 1.50 - 7.00 K/mcL LAB HEMETOLOGY METHOD 07/29/2025 6:58 AM [facility] Lymphocytes Absolute 2.67 1.00 - 5.00 K/mcL LAB HEMETOLOGY METHOD 07/29/2025 6:58 AM [facility] Monocytes Absolute 0.54 0.20 - 1.00 K/mcL LAB HEMETOLOGY METHOD 07/29/2025 6:58 AM [facility] Eosinophils Absolute 0.04 0.00 - 0.50 K/mcL LAB HEMETOLOGY METHOD 07/29/2025 6:58 AM [facility] Basophils Absolute 0.06 0.00 - 0.20 K/mcL LAB HEMETOLOGY METHOD 07/29/2025 6:58 AM [facility] Immature Granulocytes Absolute 0.07(H) 0.00 - 0.03 K/mcL LAB HEMETOLOGY METHOD 07/29/2025 6:58 AM EDT [facility] Blood Venous blood specimen / Unknown Venipuncture / Unknown 07/29/2025 6:01 AM EDT 07/29/2025 6:51 AM EDT Jorge L Ngo MD LAB BLOOD ORDERABLES Final Result Performing Organization Address [facility]/ZIP Co de Phone Number [facility] [address] [place] [address], [place] [phone] * B-type natriuretic peptide (07/29/2025 6:01 AM EDT) BNP 3 <=100 pcg/mL LAB CHEMISTRY METHOD 07/29/2025 7:54 AM EDT [facility] Blood Venous blood specimen / Unknown Venipuncture / Unknown 07/29/2025 6:01 AM EDT 07/29/2025 6:51 AM EDT Jorge L Ngo MD LAB BLOOD ORDERABLES Final Result Performing Organization Address [facility] de Phone Number [facility] [address] [place] [address], [place] [phone] * Magnesium (07/29/2025 6:01 AM EDT) Magnesium 2.2 1.9 - 2.6 mg/dL LAB CHEMISTRY METHOD 07/29/2025 7:19 AM EDT [facility] Blood Venous blood specimen / Unknown Venipuncture / Unknown 07/29/2025 6:01 AM EDT 07/29/2025 6:51 AM EDT us Jorge L Ngo MD LAB BLOOD ORDERABLES Final Result Performing Organization Address City/[facility]/ZIP Co de Phone Number [facility] [address] [place] [address], [place] [phone] * Lipase (07/29/2025 6:01 AM EDT) Lipase 63 13 - 75 unit/L LAB CHEMISTRY METHOD 07/29/2025 7:19 AM EDT [facility] Blood Venous blood specimen / Unknown Venipuncture / Unknown 07/29/2025 6:01 AM EDT 07/29/2025 6:51 AM EDT Jorge L Ngo MD LAB BLOOD ORDERABLES Final Result [facility] [address] [place] [address], * Ethanol (07/29/2025 6:01 AM EDT) Pathologist [facility] Ethanol Level 9 0 - 10 mg/dL LAB CHEMISTRY METHOD 07/29/2025 7:19 AM EDT [facility] Blood Venous blood specimen / Unknown Venipuncture / Unknown 07/29/2025 6:01 AM EDT 07/29/2025 6:51 AM EDT Princess CORONA LAB BLOOD ORDERABLES Fin al Result Performing Organization Address City/[facility]/ZIP Co de Phone Number [facility] [address] [place] [address], * (ABNORMAL) Comprehensive metabolic panel (07/29/2025 6:01 AM EDT) Sodium 134 133 - 145 mmol/L LAB CHEMISTRY METHOD 07/29/2025 7:19 AM EDT [facility] Potassium 3.0(L) 3.5 - 5.5 mmol/L LAB CHEMISTRY METHOD 07/29/2025 7:19 AM EDT [facility] Chloride 96 96 - 110 mmol/L LAB CHEMISTRY METHOD 07/29/2025 7:19 AM [facility] CO2 28 21 - 32 mmol/L LAB CHEMISTRY METHOD 07/29/2025 7:19 AM [facility] Anion Gap 10 3 - 11 LAB CHEMISTRY METHOD 07/29/2025 7:19 AM [facility] Glucose 97 70 - 100 mg/dL LAB CHEMISTRY METHOD 07/29/2025 7:19 AM [facility] BUN 12 5 - 25 mg/dL LAB CHEMISTRY METHOD 07/29/2025 7:19 AM [facility] Creatinine 0.57 0.50 - 1.10 mg/dL LAB CHEMISTRY METHOD 07/29/2025 7:19 AM [facility] eGFR 107 >=60 mL/min/1. 73m2 LAB CHEMISTRY METHOD 07/29/2025 7:19 AM [facility] Comment:Calculation based on the Chronic Kidney Disease Epidemiology Collaboration (CKD-EPI) equation refit without adjustment for race. BUN/Creatinine Ratio 21.1 LAB CHEMISTRY METHOD 07/29/2025 7:19 AM [facility] Calcium 9.8 8.5 - 10.5 mg/dL LAB CHEMISTRY METHOD 07/29/2025 7:19 AM [facility] AST (SGOT) 23 10 - 42 unit/L LAB CHEMISTRY METHOD 07/29/2025 7:19 AM [facility] ALT (SGPT) 26 10 - 60 unit/L LAB CHEMISTRY METHOD 07/29/2025 7:19 AM [facility] Alkaline Phosphatase 82 42 - 121 unit/L LAB CHEMISTRY METHOD 07/29/2025 7:19 AM [facility] Total Protein 8.6(H) 6.0 - 8.0 g/dL LAB CHEMISTRY METHOD 07/29/2025 7:19 AM [facility] Albumin 4.4 3.2 - 5.0 g/dL LAB CHEMISTRY METHOD 07/29/2025 7:19 AM EDT [facility] Total Bilirubin 0.3 0.0 - 1.4 mg/dL LAB CHEMISTRY METHOD 07/29/2025 7:19 AM EDT [facility] Blood Venous blood specimen / Unknown Venipuncture / Unknown 07/29/2025 6:01 AM EDT 07/29/2025 6:51 AM EDT us Jorge L Ngo MD LAB BLOOD ORDERABLES Final Result [facility] [address] [place] [address], from Last 3 Months Insurance MEDICAID - [place] Care Teams Wire Mill Operator Relationship Specialty Start Date End Date Physician, Pcp Unknown PCP - General 07/29/25
--- OUTSIDE RECORDS SUMMARY | 2025-08-02 12:02 | XMS_ITS | Encounter Summary ---
Author Organization [employer] Address [address] [place] [address] Care Team Providers Care Blower Mechanic Name Role Phone Charissa Rojas MD Primary Care Provider [phone]- [phone] Reason for Referral * Imaging (Routine) - Closed Specialty Diagnoses / Procedures Referred By Froylan calhoun Referred To Contact Radiology Diagnoses Transaminitis Procedures US Abdomen Complete Charissa Rojas MD [address] [place] [address] Phone: tel: fax: [facility] Referral ID Status Reason Start Date Expiration Date Visits Re quested Visits Authorized [id number] Closed 03/18/2025 03/18/2026 1 1 Encounter Details Date Type Department Care Team (Late st Contact Info) Description 03/18/2025 Orders Only [facility] [address] [place] [address] Charissa Rojas MD [address] [place] [address] Transaminitis (Primary Dx) Social History Tobacco Use Types Packs/Day Years Used Date Smoking Tobacco: Never Smokeless Tobacco: Never Depression Answer Date Recorded Patient Health Questionnaire-9 Score 4 03/15/2025 Patient Health Questionnaire-9 Score 4 03/15/2025 Last PHQ-9: Questionnaire Data Not on file 0 03/15/2025 Housing Stability Answer Date Recorded What is your housing situation today? I have philippe shayla 03/15/[address] you li [...] Access Q2 Not on file 03/15/2025 Comments Unknown Sex and Gender Information Value Date Recorded Sex Assigned at Female 09/13/2022 10:14 AM EDT Legal Sex Female 10:14 AM EDT Gender Identity Female 09/13/2022 10:14 AM EDT Sexual Orientation Straight 09/13/2022 10 :14 AM EDT documented as of this encounter Plan of Treatment Upcoming Encounters Date Type Department Care Team ([facility] Contact Info) Description 10/02/2025 10:30 AM EST Office Visit [facility] [address] [place] [address] Charissa Rojas MD [address] [place] [address] Scheduled Orders Name Type Priority Associated Diagnoses Orde r Schedule US Abdomen Complete Imaging Routine Transaminitis Expected: 03/18/2025, Expires: 03/18/2026 Hepatitis B Surface Antibody, Qualitative Lab Routine Transaminitis Expected: 03/18/2025 (Approximate), Expires: 03/18/2026 Hepatitis B Core Antibody, Total Lab Routine Transaminitis Expected: 03/18/2025 (Approximate), Expires: 03/18/2026 Iron And Total Iron Binding Capacity Lab Routine Transaminitis Expected: 03/18/2025, Expires: 03/18/2026 Ferritin Lab Routine Transaminitis Expected: 03/18/2025, Expires: 03/18/2026 Smooth Muscle Antibody with Reflex to Titer Lab Routine Transaminitis Expected: 03/18/2025 (Approximate), Expires: 03/18/2026 Immunoglobulins Panel, Serum Lab Routine Transaminitis Expected: 03/18/2025 (Approximate), Expires: 03/18/2026 Prothrombin Time-INR Lab Routine Transaminitis Expected: 03/18/2025, Expires: 03/18/2026 Alpha 1 Antitrypsin Lab Routine Transaminitis Expected: 03/18/2025 (Approximate), Expires: 03/18/2026 documented as of this encounter Visit Diagnoses Diagnosis Transaminitis- Primary Nonspecific elevation of levels of transaminase or lactic acid dehydrogenase (LDH) documented in this encounter Additional Health Concerns Assessment Noted Time PHQ-9 Depression Total Score: 4 03/15/20 25 2:36 PM EDT documented as of this encounter Care Teams Blower Mechanic Relationship Specialty Start Date End Date Charissa Rojas MD [address] [place] [id number] PCP - General Internal Medicine 03/09/12 Mikey Daniels MD Psychiatrist 04/09/25 documented as of this encounter
--- OUTSIDE RECORDS SUMMARY | 2025-08-02 12:03 | XMS_ITS | Encounter Summary ---
Author Organization [employer] Address [address] [place] [address] Care Team Providers Care Engineering Project Manager Name Role Phone Charissa Rojas MD Primary Care Provider [phone]- [phone] Reason for Visit * Reason Onset Date Comments ER Follow-up 07/29/2025 Encounter Details Date Type Department Care Team ([facility] st Contact Info) Description 07/29/2025 Telephone [facility] [address] [place] [address] Charissa Rojas MD [address] [place] [address] ER Follow-up Social History Tobacco Use Types Packs/Day Years [...] encounter Miscellaneous Notes * Telephone Encounter - Paty Mendez RN - 07/29/2025 3:05 PM EDT Appointment schedule for 08/01/25. * Telephone Encounter - Thony Wayne - 07/29/2025 12:21 PM EDT Patient calling to report ED visit on : Date: 07/28/25 Hospital: [facility] ED Seen for: chest pain Symptomatic No *if yes message should go to Triage Patient advised will forward to team nurse for follow up documented in this encounter Plan of Treatment Upcoming Encounters Date Type Department Care Team (Late st Contact Info) Description 10/02/2025 10:30 AM EST Office Visit [facility] [address] [place] [address] Charissa Rojas MD [address] [place] [address] documented as of this encounter Visit Diagnoses Not on filedocumented in this encounter Additional Health Concerns Assessment Noted Time PHQ-9 Depression Total Score: 4 03/15/20 2:36 PM EDT documented as of this encounter Care Teams Engineering Project Manager Relationship Specialty Start Date End Date Charissa Rojas MD [address] [place] [phone] PCP - General Internal Medicine 03/09/12 Mikey Daniels MD Psychiatrist 04/09/25 documented as of this encounter
[2025-08-02 14:36] LABS: MANUAL DIFF FLAG NO
[2025-08-02 14:53] LABS: Hematocrit 38.2 % (37.0-47.0); Hemoglobin 12.5 g/dl (12.0-16.0); Imm Gran Abs Auto 0.05 X10*3/uL (0.00-0.03); Imm Gran Pct Auto 0.5 % (0.0-0.4); Lymphocytes Absolute Auto 2.5 X10*3/uL (1.2-4.9); Mean Corpuscular HGB Conc 32.7 g/dl (31.0-35.0); Mean Corpuscular Hemoglobin 28.5 pg (27.0-33.0); Mean Corpuscular Volume 87.0 fL (80.0-98.0); NRBC Abs Auto 0.000 X10*3/uL (0.0-0.012); NRBC Pct Auto 0.0 /100WBC (0.0-0.2); Platelet Count 458 X10*3/uL (160-400); Red Blood Count 4.39 X10*6/uL (4.20-5.50); White Blood Count 9.2 X10*3/uL (4.8-10.8)
[2025-08-02 15:05] LABS: Alanine Aminotransferase 26 U/L (0-31); Albumin Level 4.5 g/dL (3.5-5.0); Alkaline Phosphatase 68 U/L (39-117); Anion Gap 12 (12-20); Aspartate Amino Transferase 26 U/L (5-31); Blood Urea Nitrogen 17 mg/dL (9-16); Calcium 9.6 mg/dL (8.4-10.2); Carbon Dioxide 29 mmol/L (22-29); Chloride 102 mmol/L (96-108); Cholesterol 269 mg/dL (<200); Estimated Glomerular Filt Rate > 60; HDL Cholesterol 39 mg/dL (>40); Potassium 3.9 mmol/L (3.3-5.1); Sodium 139 mmol/L (135-145); Total Protein 8.3 g/dL (6.5-8.0); Triglycerides 256 mg/dL (<150)
== END 2025-08-02 11:25 | disposition home or self-care (01) ==
LOC: HO.CHCLDS 11:24
PROVIDERS: Visit Provider Internal Medicine
DX: I10 Essential (primary) hypertension (principal)
CPT/HCPCS: 36415; 80053; 80061; 84443; 85025